=== PATIENT | female | born 1955 | race Caucasian/White ===

== ENCOUNTER → 2017-05-13 | Outpatient (CLI) | payer MEDICARE, OTHER ==
[~2017-05-13] MED LIST: ABAC300; ADVANCED IRON PO; ALBIPROI; ALBIPROI INH; ALBU3IS INH; ALPR.25 PO; ALPR1 PO; AMIT50 PO; AMLO5; AMLO5 PO; ARIP15; ARIP15 PO; ARIP30 PO; Acid Control20 MG PO; Amlodipine Besyl5 MG PO; BANOPHEN50 MG PO; BENTYL20 MG PO; BENZ1; BENZ1 PO; BENZ2 PO; BENZTROPINE; CARB200; CARB200 PO; CARB200ER; CARB200ER PO; CEPH500 PO; CHOL10002 PO; CIPR250 PO; CIPR500 PO; CLIN300 PO; CLON.1 PO; CLON1; CLON1 PO; CLON2; COLE625; COLE625 PO; COMBIVENT RESPIM4 GM IH; COMBIVENT RESPIM4 GM INH; CONEST.625; CONEST.625 PO; CYAN500 PO; CYCL10; CYCL10 PO; DEPAKOTE; DICL25ER PO; DIPATR PO; DIPH25 PO; DIPH50 PO; DIVA500EC; DOCU100 PO; ESTR2 PO; ESTRADIOL 1MG; ESTRADIOL PO; Estradiol1 MG PO; FAMC500; FAMC500 PO; FAMO20 PO; FENO145 PO; FENO160; FENO160 PO; FENO54; FLAX PO; FLONASE ALLERG9.9 ML INH; FLUO10 PO; FLUO20; FLUO20 PO; FLUSAL2505; FLUSAL2505 IH; FLUSAL2505 INH; FLUSAL5005 INH; FLUT.05NI; FLUT110OIA INH; FLUT44OIA IH; FLUT44OIA INH; Flonase 0.05% N16 GM; GABA400; GABA800; GABA800 PO; HYDACE5 PO; HYDACE7.5; HYDR-86 PO; HYDR1TAB94 PO; IBUP800 PO; ISOMON20 PO; LEVSOD100 PO; MAGCIT300 PO; MEDR2.5; MEDR2.5 PO; MEDR5; MEDR5 PO; MORP30ER PO; MULT50L PO; MULTIVITAMINS; MULVITMIND PO; MULVITMINE PO; MUPI1NAS; NAPR500; NAPR500 PO; NITR100 PO; OMEP20ER; OMEP20ER PO; OMEP40CA12 PO; OXYACE5T PO; PIOG15; PIOG15 PO; PRED20 PO; PROACE100 PO; PROC10; PROC10 PO; PROCHLORPERAZINE 10 MG; Prozac20 MG PO; RXCEPH500 PO; RXOXYACE PO; Roxicodone5 MG; TEMA15 PO; TIOT18 INH; TRAM50; TRAM50 PO; TRAZ100; VALS80; VARE1 PO; VITAMIN D3 5000 PO; XANAX 2 MG; XANAX PO
== END | disposition home or self-care (01) ==
LOC: PLD 08:15 → LAB SHORT 08:15
DX: L57.0 Actinic keratosis (principal); L90.5 Scar conditions and fibrosis of skin; L40.8 Other psoriasis
CPT/HCPCS: 88305; 88312

== ENCOUNTER → 2017-05-13 | Outpatient (CLI) | payer MEDICARE, OTHER | LOC: LAB 15:55 | DX: A49.9 Bacterial infection, unspecified (principal) | CPT/HCPCS: 87070; 87077; 87147; 87186; 87205 ==

== ENCOUNTER → 2017-05-14 | Outpatient (CLI) | payer MEDICARE, OTHER ==
[2017-05-14 10:27] LABS: Source, Urine Clean Catch
[2017-05-14 11:39] LABS: Bilirubin, Urine Neg (Neg); Blood, Urine 1+ (Neg); Glucose Qualitative, Urine 2+ (Neg); Ketones, Urine Neg (Neg); Leukocyte Esterase, Urine 1+ (Neg); Nitrite, Urine Neg (Neg); Protein, Urine 2+ (Neg); Specific Gravity, Urine 1.015 (1.003-1.022); Urobilinogen, Urine 1+ (Normal)
[2017-05-14 11:42] LABS: BASOPHILS ABSOLUTE AUTO 0.05 K/mm3 (0.00-0.23); BASOPHILS PERCENT AUTO 1 % (0-2); EOSINOPHILS PERCENT AUTO 2 % (0-6); Hematocrit 37.8 % (33.0-51.0); Hemoglobin 11.8 g/dL (11.5-16.0); IMMATURE GRAN ABSOLUTE AUTO 0.05 K/mm3 (0.00-0.10); IMMATURE GRAN PERCENT AUTO 1 % (0-1); LYMPHOCYTES PERCENT AUTO 22 % (21-46); MONOCYTES PERCENT AUTO 8 % (4-13); Mean Corpuscular HGB 27.3 pg (26.0-34.0); Mean Corpuscular HGB Conc 31.2 g/dL (31.5-36.5); Mean Corpuscular Volume 88 fL (80-100); NEUTROPHILS PERCENT AUTO 67 % (41-73); Platelet Count 420 K/mm3 (150-400); RDW Coefficient Variation 14.7 % (11.7-14.2); Red Blood Cell Count 4.32 M/mm3 (3.80-5.20)
[2017-05-14 11:50] LABS: Anion Gap 7 mmol/L (6-16); Appearance, Urine Hazy (Clear); Blood Urea Nitrogen 9 mg/dL (8-24); Bun/Creatinine Ratio 13.5 (12.0-20.0); CO2, Blood 27 mmol/L (21-32); Calcium, Blood 8.7 mg/dL (8.5-10.1); Chloride, Blood 102 mmol/L (98-108); Color, Urine Yellow (P-Yellow); Creatinine, Blood 0.67 mg/dL (0.40-1.00); Glomerular Filtration Rate >60 (60-); Glucose, Blood 86 mg/dL (70-99); Potassium, Blood 3.8 mmol/L (3.5-5.5); Sodium, Blood 136 mmol/L (136-145)
[2017-05-14 11:53] LABS: Amorphous Light (0-Heavy); Bacteria Mod /hpf; Calcium Oxalate Crystals Few /hpf; Red Blood Cells, Urine 0-2 /hpf (0-2); Squamous Epithelial Cells Few /hpf (Few); White Blood Cells, Urine 0-2 /hpf (0-5)
== END ==
LOC: OLS 10:24
PROVIDERS: Obstetrics & Gynecology Gynecology
DX: Z01.818 Encounter for other preprocedural examination (principal); N95.0 Postmenopausal bleeding
CPT/HCPCS: 36415; 80048; 81001; 85025; 87077; 87086; 87186

== ENCOUNTER 2017-06-10 12:12 | Day surgery (SDC) | payer MEDICARE, OTHER ==
[~2017-06-10] VITALS: Ht 170.2 cm; Wt 134.7 kg
== END 2017-06-10 15:56 | disposition home or self-care (01) ==
LOC: ORSCSDS 12:12
PROVIDERS: Obstetrics & Gynecology Gynecology
PROC: 0UDB7ZX Extraction of Endometrium, Via Natural or Artificial Opening, Diagnostic (ICD-10-PCS; principal; 2017-06-10 14:00)
PROC: 0UJD8ZZ Inspection of Uterus and Cervix, Via Natural or Artificial Opening Endoscopic (ICD-10-PCS; principal; 2017-06-10 14:00)
DX: N95.0 Postmenopausal bleeding (principal); E78.5 Hyperlipidemia, unspecified; J44.9 Chronic obstructive pulmonary disease, unspecified; F41.8 Other specified anxiety disorders; Z87.891 Personal history of nicotine dependence; I10 Essential (primary) hypertension; E03.9 Hypothyroidism, unspecified; Z79.899 Other long term (current) drug therapy
CPT/HCPCS: 88305; J0690; J1100; J1885; J2250; J2270; J2405; J3010; J7120

== ENCOUNTER 2017-09-28 02:20 | Emergency (ER) | payer MEDICARE, OTHER ==
[~2017-09-28] VITALS: Ht 170.2 cm; Wt 124.7 kg
[2017-09-28] MEDS ORDERED: MEDR2.5 PO (02:57)
[2017-09-28] MEDS ORDERED: TIOT18 INH (02:58)
[2017-09-28 03:04] LABS: BASOPHILS ABSOLUTE AUTO 0.06 K/mm3 (0.00-0.23); BASOPHILS PERCENT AUTO 1 % (0-2); EOSINOPHILS ABSOLUTE AUTO 0.37 K/mm3 (0.00-0.68); EOSINOPHILS PERCENT AUTO 3 % (0-6); Hematocrit 37.4 % (33.0-51.0); Hemoglobin 11.8 g/dL (11.5-16.0); IMMATURE GRAN ABSOLUTE AUTO 0.04 K/mm3 (0.00-0.10); IMMATURE GRAN PERCENT AUTO 0 % (0-1); LYMPHOCYTES ABSOLUTE AUTO 2.23 K/mm3 (0.84-5.20); LYMPHOCYTES PERCENT AUTO 17 % (21-46); MONOCYTES ABSOLUTE AUTO 0.96 K/mm3 (0.16-1.47); MONOCYTES PERCENT AUTO 7 % (4-13); Mean Corpuscular HGB 27.6 pg (26.0-34.0); Mean Corpuscular HGB Conc 31.6 g/dL (31.5-36.5); Mean Corpuscular Volume 87 fL (80-100); NEUTROPHILS ABSOLUTE AUTO 9.31 K/mm3 (1.96-9.15); NEUTROPHILS PERCENT AUTO 72 % (41-73); Platelet Count 380 K/mm3 (150-400); RDW Coefficient Variation 15.3 % (11.7-14.2); RDW Standard Deviation 48.9 fL (35.1-46.3); Red Blood Cell Count 4.28 M/mm3 (3.80-5.20); White Blood Cell Count 12.97 K/mm3 (4.00-11.30)
[2017-09-28 03:22] LABS: Alanine Aminotransfer (ALT/SGP 26 U/L (12-78); Albumin, Blood 3.6 g/dL (3.4-5.0); Albumin/Globulin Ratio 0.8 (0.8-1.8); Alk Phos 51 U/L (50-136); Anion Gap 10 mmol/L (6-16); Aspartate Aminotrans (AST/SGOT 34 U/L (12-37); Bilirubin, Total 0.4 mg/dL (0.1-1.0); Blood Urea Nitrogen 9 mg/dL (8-24); Bun/Creatinine Ratio 14.1 (12.0-20.0); CO2, Blood 25 mmol/L (21-32); Calcium, Blood 8.7 mg/dL (8.5-10.1); Chloride, Blood 102 mmol/L (98-108); Creatinine, Blood 0.64 mg/dL (0.40-1.00); Globulin, Blood 4.6 g/dL (2.2-4.0); Glomerular Filtration Rate >60 (60-); Glucose, Blood 122 mg/dL (70-99); Potassium, Blood 4.5 mmol/L (3.5-5.5); Sodium, Blood 137 mmol/L (136-145); Total Protein, Blood 8.2 g/dL (6.4-8.2)
[2017-09-28 04:48] LABS: Source, Urine Clean Catch
[2017-09-28 04:50] LABS: Bilirubin, Urine Neg (Neg); Blood, Urine Neg (Neg); Glucose Qualitative, Urine Neg (Neg); Ketones, Urine Neg (Neg); Leukocyte Esterase, Urine 1+ (Neg); Nitrite, Urine Neg (Neg); Protein, Urine 1+ (Neg); Specific Gravity, Urine 1.025 (1.003-1.022); Urobilinogen, Urine NORM (Normal)
[2017-09-28 04:54] LABS: Appearance, Urine Hazy (Clear); Color, Urine Yellow (P-Yellow)
[2017-09-28 05:05] LABS: Bacteria Many /hpf; Calcium Oxalate Crystals Mod /hpf; Red Blood Cells, Urine Not Seen /hpf (0-2); Squamous Epithelial Cells Many /hpf (Few)
== END 2017-09-28 05:51 | disposition home or self-care (01) ==
LOC: ER 02:20
PROVIDERS: Emergency Medicine
DX: R10.9 Unspecified abdominal pain (principal); K42.9 Umbilical hernia without obstruction or gangrene; G40.909 Epilepsy, unspecified, not intractable, without status epilepticus; F31.9 Bipolar disorder, unspecified; Z88.1 Allergy status to other antibiotic agents; Z88.0 Allergy status to penicillin; Z88.8 Allergy status to other drugs, medicaments and biological substances; Z91.09 Other allergy status, other than to drugs and biological substances; Z88.2 Allergy status to sulfonamides; Z79.899 Other long term (current) drug therapy; Z87.891 Personal history of nicotine dependence
CPT/HCPCS: 36415; 74176; 80053; 81001; 85025; 87086; 96361; 96374; 96375; 96376; 99284; J1885; J3010; J7030

== ENCOUNTER → 2018-07-10 | Outpatient (CLI) | payer MEDICARE, OTHER ==
[2018-07-14 14:07] LABS: HPV 16 Negative (Negative); HPV 18 Negative (Negative); HPV OTHER HR TYPES Negative (Negative)
== END | disposition home or self-care (01) ==
LOC: LAB 14:19 → LAB SHORT 14:19
PROVIDERS: Obstetrics & Gynecology Gynecology
DX: Z91.89 Other specified personal risk factors, not elsewhere classified (principal)
CPT/HCPCS: 87624; G0123

== ENCOUNTER → 2018-07-30 | Outpatient (CLI) | payer MEDICARE, OTHER ==
[2018-07-30 10:38] LABS: BASOPHILS ABSOLUTE AUTO 0.04 K/mm3 (0.00-0.23); BASOPHILS PERCENT AUTO 1 % (0-2); EOSINOPHILS ABSOLUTE AUTO 0.21 K/mm3 (0.00-0.68); EOSINOPHILS PERCENT AUTO 3 % (0-6); Hematocrit 36.8 % (33.0-51.0); Hemoglobin 11.9 g/dL (11.5-16.0); IMMATURE GRAN ABSOLUTE AUTO 0.03 K/mm3 (0.00-0.10); IMMATURE GRAN PERCENT AUTO 0 % (0-1); LYMPHOCYTES PERCENT AUTO 27 % (21-46); MONOCYTES PERCENT AUTO 6 % (4-13); Mean Corpuscular HGB 28.4 pg (26.0-34.0); Mean Corpuscular HGB Conc 32.3 g/dL (31.5-36.5); Mean Corpuscular Volume 88 fL (80-100); Mean Platelet Volume 8.8 fL (9.1-12.4); NEUTROPHILS ABSOLUTE AUTO 4.47 K/mm3 (1.96-9.15); NEUTROPHILS PERCENT AUTO 63 % (41-73); Platelet Count 429 K/mm3 (150-400); RDW Coefficient Variation 14.5 % (11.7-14.2); RDW Standard Deviation 46.8 fL (35.1-46.3); Red Blood Cell Count 4.19 M/mm3 (3.80-5.20); White Blood Cell Count 7.05 K/mm3 (4.00-11.30)
[2018-07-30 10:46] LABS: Alanine Aminotransfer (ALT/SGP 26 U/L (12-78); Albumin, Blood 3.3 g/dL (3.4-5.0); Albumin/Globulin Ratio 0.8 (0.8-1.8); Alk Phos 49 U/L (40-126); Anion Gap 6 mmol/L (6-16); Aspartate Aminotrans (AST/SGOT 22 U/L (12-37); Bilirubin, Total 0.1 mg/dL (0.1-1.0); Blood Urea Nitrogen 10 mg/dL (8-24); Bun/Creatinine Ratio 12.5 (12.0-20.0); CO2, Blood 30 mmol/L (21-32); Calcium, Blood 8.8 mg/dL (8.5-10.1); Chloride, Blood 97 mmol/L (98-108); Globulin, Blood 4.2 g/dL (2.2-4.0); Glomerular Filtration Rate >60 (60-); Glucose, Blood 91 mg/dL (70-99); Potassium, Blood 3.8 mmol/L (3.5-5.5); Sodium, Blood 133 mmol/L (136-145); Total Protein, Blood 7.5 g/dL (6.4-8.2)
== END | disposition home or self-care (01) ==
LOC: LAB SHORT 10:33 → LAB EV 10:33
PROVIDERS: Physician Assistant
DX: R10.9 Unspecified abdominal pain (principal)
CPT/HCPCS: 80053; 85025

== ENCOUNTER 2018-11-24 17:17 | Emergency (ER) | payer MEDICARE, OTHER ==
[~2018-11-24] VITALS: Ht 170.2 cm; Wt 117.9 kg
[~2018-11-24 17:17] MED LIST changes: +Amitriptyline100 MG PO; +BELBUCA300 MCG BC; +BUDE6HFA INH; +Bentyl20 MG PO; -FAMC500; +HYDPAM25 PO; +LISI5 PO; +METO25ER PO; +MULTI VITAMIN1 EACH PO; +OMEPRAZOLE MAGN20 MG PO; +PROM25 PO; +ROPI.25 PO; +SPIRIVA RESPIMAT4 G1 INH; +VENL75ER PO
[2018-11-24 17:51] LABS: BASOPHILS ABSOLUTE AUTO 0.04 K/mm3 (0.00-0.23); BASOPHILS PERCENT AUTO 0 % (0-2); EOSINOPHILS ABSOLUTE AUTO 0.19 K/mm3 (0.00-0.68); EOSINOPHILS PERCENT AUTO 2 % (0-6); Hematocrit 36.2 % (33.0-51.0); Hemoglobin 11.4 g/dL (11.5-16.0); IMMATURE GRAN ABSOLUTE AUTO 0.04 K/mm3 (0.00-0.10); IMMATURE GRAN PERCENT AUTO 0 % (0-1); LYMPHOCYTES ABSOLUTE AUTO 2.86 K/mm3 (0.84-5.20); LYMPHOCYTES PERCENT AUTO 28 % (21-46); MONOCYTES ABSOLUTE AUTO 0.66 K/mm3 (0.16-1.47); MONOCYTES PERCENT AUTO 7 % (4-13); Mean Corpuscular HGB 29.3 pg (26.0-34.0); Mean Corpuscular HGB Conc 31.5 g/dL (31.5-36.5); Mean Corpuscular Volume 93 fL (80-100); Mean Platelet Volume 8.7 fL (9.1-12.4); NEUTROPHILS ABSOLUTE AUTO 6.34 K/mm3 (1.96-9.15); NEUTROPHILS PERCENT AUTO 63 % (41-73); Platelet Count 409 K/mm3 (150-400); RDW Coefficient Variation 13.7 % (11.7-14.2); RDW Standard Deviation 46.5 fL (35.1-46.3); Red Blood Cell Count 3.89 M/mm3 (3.80-5.20); White Blood Cell Count 10.13 K/mm3 (4.00-11.30)
[2018-11-24 18:09] LABS: Alanine Aminotransfer (ALT/SGP 25 U/L (12-78); Albumin, Blood 3.3 g/dL (3.4-5.0); Albumin/Globulin Ratio 0.8 (0.8-1.8); Alk Phos 49 U/L (50-136); Anion Gap 5 mmol/L (6-16); Aspartate Aminotrans (AST/SGOT 16 U/L (12-37); Bilirubin, Total 0.1 mg/dL (0.1-1.0); Blood Urea Nitrogen 12 mg/dL (8-24); Bun/Creatinine Ratio 18.3 (12.0-20.0); CO2, Blood 30 mmol/L (21-32); Calcium, Blood 8.8 mg/dL (8.5-10.1); Chloride, Blood 103 mmol/L (98-108); Creatinine, Blood 0.66 mg/dL (0.40-1.00); Ethanol (Alcohol), Blood, Med <3 mg/dL; Glomerular Filtration Rate >60 (60-); Glucose, Blood 112 mg/dL (70-99); Potassium, Blood 3.7 mmol/L (3.5-5.5); Sodium, Blood 138 mmol/L (136-145); Total Protein, Blood 7.3 g/dL (6.4-8.2)
[2018-11-24 19:05] LABS: Carbamazepine 4.8 ug/mL (4.0-12.0)
[2018-11-24 19:46] LABS: Source, Urine Clean Catch
[2018-11-24 19:50] LABS: Bilirubin, Urine Neg (Neg); Blood, Urine Neg (Neg); Glucose Qualitative, Urine Neg (Neg); Ketones, Urine 1+ (Neg); Leukocyte Esterase, Urine 1+ (Neg); Nitrite, Urine Neg (Neg); Protein, Urine 2+ (Neg); Specific Gravity, Urine 1.025 (1.003-1.022); Urobilinogen, Urine 1+ (Normal)
[2018-11-24 20:02] LABS: Appearance, Urine Hazy (Clear); Color, Urine Yellow (P-Yellow)
[2018-11-24 20:03] LABS: U Amphetamine Screen Not Detected; U Barbituate Screen Not Detected; U Benzodiazapine Screen DETECTED; U Buprenorphine Screen DETECTED; U Cannabinoids Screen DETECTED; U Cocaine Screen Not Detected; U Methadone Screen Not Detected; U Methamphetamine Screen Not Detected; U Opiates Screen Not Detected; U Oxycodone Screen Not Detected; U Phencyclidine Screen Not Detected; U Propoxyphene Screen Not Detected
[2018-11-24 20:11] LABS: Bacteria Many /hpf; Red Blood Cells, Urine Not Seen /hpf (0-2); Squamous Epithelial Cells Many /hpf (Few); White Blood Cells, Urine 0-2 /hpf (0-5)
[2018-11-24 20:16] LABS: Calcium Oxalate Crystals Many /hpf
[2018-11-24] MEDS ORDERED: CEPH500 PO (20:40)
== END 2018-11-24 21:06 | disposition home or self-care (01) ==
LOC: ER 17:17
PROVIDERS: Emergency Medicine
DX: R41.82 Altered mental status, unspecified (principal); N39.0 Urinary tract infection, site not specified; Z88.8 Allergy status to other drugs, medicaments and biological substances; Z88.0 Allergy status to penicillin; Z88.2 Allergy status to sulfonamides; Z88.1 Allergy status to other antibiotic agents; Z79.899 Other long term (current) drug therapy; F31.9 Bipolar disorder, unspecified; Z87.891 Personal history of nicotine dependence
CPT/HCPCS: 36415; 70450; 80053; 80156; 81001; 83735; 85025; 87077; 87086; 87186; 93005; 93010; 96365; 96375; 99285-25; G0480; J2060; J3475; J7030

== ENCOUNTER → 2018-12-27 | Outpatient (CLI) | payer MEDICARE, OTHER | END | disposition home or self-care (01) | LOC: LAB EV 14:03 → LAB SHORT 14:03 | DX: N39.0 Urinary tract infection, site not specified (principal) | CPT/HCPCS: 87077; 87086; 87186 ==

== ENCOUNTER 2019-04-07 16:16 | Observation (INO) | payer MEDICARE, OTHER ==
[~2019-04-07] VITALS: Ht 170.2 cm; Wt 120.2 kg
[~2019-04-07 16:16] MED LIST changes: +Lomotil Tablet1 EACH PO
[2019-04-07 17:16] LABS: White Blood Cell Count 9.97 K/mm3 (4.00-11.30)
[2019-04-07 17:17] LABS: BASOPHILS ABSOLUTE AUTO 0.04 K/mm3 (0.00-0.23); BASOPHILS PERCENT AUTO 0 % (0-2); EOSINOPHILS PERCENT AUTO 1 % (0-6); Hematocrit 36.2 % (33.0-51.0); Hemoglobin 11.1 g/dL (11.5-16.0); IMMATURE GRAN ABSOLUTE AUTO 0.05 K/mm3 (0.00-0.10); IMMATURE GRAN PERCENT AUTO 1 % (0-1); LYMPHOCYTES ABSOLUTE AUTO 2.13 K/mm3 (0.84-5.20); LYMPHOCYTES PERCENT AUTO 21 % (21-46); MONOCYTES ABSOLUTE AUTO 0.75 K/mm3 (0.16-1.47); MONOCYTES PERCENT AUTO 8 % (4-13); Mean Corpuscular HGB 27.1 pg (26.0-34.0); Mean Corpuscular HGB Conc 30.7 g/dL (31.5-36.5); Mean Corpuscular Volume 89 fL (80-100); Mean Platelet Volume 9.1 fL (9.1-12.4); NEUTROPHILS PERCENT AUTO 69 % (41-73); Platelet Count 414 K/mm3 (150-400); RDW Coefficient Variation 14.5 % (11.7-14.2); RDW Standard Deviation 46.2 fL (35.1-46.3); Red Blood Cell Count 4.09 M/mm3 (3.80-5.20)
[2019-04-07 17:41] LABS: Alanine Aminotransfer (ALT/SGP 22 U/L (12-78); Albumin, Blood 3.3 g/dL (3.4-5.0); Albumin/Globulin Ratio 0.8 (0.8-1.8); Alk Phos 55 U/L (50-136); Anion Gap 6 mmol/L (6-16); Aspartate Aminotrans (AST/SGOT 14 U/L (12-37); Bilirubin, Total 0.1 mg/dL (0.1-1.0); Blood Urea Nitrogen 14 mg/dL (8-24); Bun/Creatinine Ratio 15.9 (12.0-20.0); CO2, Blood 26 mmol/L (21-32); Calcium, Blood 8.5 mg/dL (8.5-10.1); Chloride, Blood 106 mmol/L (98-108); Creatinine, Blood 0.88 mg/dL (0.40-1.00); Globulin, Blood 4.1 g/dL (2.2-4.0); Glomerular Filtration Rate >60 (60-); Glucose, Blood 83 mg/dL (70-99); Potassium, Blood 3.7 mmol/L (3.5-5.5); Sodium, Blood 138 mmol/L (136-145); Total Protein, Blood 7.4 g/dL (6.4-8.2)
[2019-04-07 18:13] LABS: Troponin I <0.015 ng/mL (0.000-0.040)
[2019-04-07] MEDS ORDERED: METOPROLOL TART25 MG PO (20:07)
[2019-04-07] MEDS ORDERED: CARB200ER PO (20:07)
[2019-04-07] MEDS ORDERED: BELBUCA450 MCG BC (20:08)
[2019-04-07] MEDS ORDERED: Flonase 0.05% N16 GM (20:10)
[2019-04-07] MEDS ORDERED: Banophen25 MG PO (20:10)
[2019-04-07] MEDS ORDERED: COMBIVENT RESPIM4 GM INH (20:11)
--- NOTE | 2019-04-08 02:22 | NUR ---
Admission Patient admitted with left shoulder pain. VSS. No c/o SOB. IV pain medication was effective. She has scattered bruising to her arms which she states are from "scratching". Skin appears intact otherwise. She has glasses, dentures, and a purse with her.
[2019-04-08 05:13] LABS: BASOPHILS ABSOLUTE AUTO 0.03 K/mm3 (0.00-0.23); BASOPHILS PERCENT AUTO 0 % (0-2); EOSINOPHILS ABSOLUTE AUTO 0.09 K/mm3 (0.00-0.68); EOSINOPHILS PERCENT AUTO 1 % (0-6); Hematocrit 34.7 % (33.0-51.0); Hemoglobin 10.5 g/dL (11.5-16.0); IMMATURE GRAN ABSOLUTE AUTO 0.02 K/mm3 (0.00-0.10); IMMATURE GRAN PERCENT AUTO 0 % (0-1); LYMPHOCYTES ABSOLUTE AUTO 1.92 K/mm3 (0.84-5.20); LYMPHOCYTES PERCENT AUTO 25 % (21-46); MONOCYTES ABSOLUTE AUTO 0.53 K/mm3 (0.16-1.47); MONOCYTES PERCENT AUTO 7 % (4-13); Mean Corpuscular HGB 26.9 pg (26.0-34.0); Mean Corpuscular HGB Conc 30.3 g/dL (31.5-36.5); Mean Corpuscular Volume 89 fL (80-100); Mean Platelet Volume 8.8 fL (9.1-12.4); NEUTROPHILS ABSOLUTE AUTO 5.05 K/mm3 (1.96-9.15); NEUTROPHILS PERCENT AUTO 66 % (41-73); Platelet Count 358 K/mm3 (150-400); RDW Coefficient Variation 14.5 % (11.7-14.2); RDW Standard Deviation 46.5 fL (35.1-46.3); White Blood Cell Count 7.64 K/mm3 (4.00-11.30)
--- NOTE | 2019-04-08 05:14 | NUR ---
Shift Summary Patient slept intermittently overnight. She reported significant pain to her left shoulder which was largely controlled by IV fentanyl and toradol.
[2019-04-08 05:48] LABS: Alanine Aminotransfer (ALT/SGP 22 U/L (12-78); Albumin, Blood 2.9 g/dL (3.4-5.0); Albumin/Globulin Ratio 0.8 (0.8-1.8); Alk Phos 49 U/L (50-136); Anion Gap 4 mmol/L (6-16); Aspartate Aminotrans (AST/SGOT 17 U/L (12-37); Bilirubin, Total 0.3 mg/dL (0.1-1.0); Blood Urea Nitrogen 14 mg/dL (8-24); Bun/Creatinine Ratio 24.2 (12.0-20.0); CO2, Blood 28 mmol/L (21-32); Calcium, Blood 8.3 mg/dL (8.5-10.1); Chloride, Blood 108 mmol/L (98-108); Creatinine, Blood 0.58 mg/dL (0.40-1.00); Globulin, Blood 3.7 g/dL (2.2-4.0); Glomerular Filtration Rate >60 (60-); Glucose, Blood 95 mg/dL (70-99); Potassium, Blood 3.6 mmol/L (3.5-5.5); Sodium, Blood 140 mmol/L (136-145); Total Protein, Blood 6.6 g/dL (6.4-8.2)
[2019-04-08] MEDS ORDERED: NAPR500 PO (15:06)
--- NOTE | 2019-04-08 17:25 | NUR ---
DISCHARGE PT DISCHARGED TO HOME. THIS RN EXPLAINED DISCHARGE INSTRUCTIONS AND MEDICATIONS TO PT AND SHE REPORTS SHE UNDERSTANDS. IV REMOVED WITHOUT DIFFICULTY. PT TRANSFERRED TO PRIVATE VEHICLE VIA WHEELCHAIR BY THIS RN. PT'S BELONGINGS WITH PT.
== END 2019-04-08 16:32 | disposition home or self-care (01) ==
LOC: ER 16:16 → MEDS 16:17
PROVIDERS: Emergency Medicine; Physician Assistant; ADMIT Internal Medicine
DX: M75.32 Calcific tendinitis of left shoulder (principal); J44.9 Chronic obstructive pulmonary disease, unspecified; K21.9 Gastro-esophageal reflux disease without esophagitis; M79.7 Fibromyalgia; F41.0 Panic disorder [episodic paroxysmal anxiety]; F41.9 Anxiety disorder, unspecified; F31.9 Bipolar disorder, unspecified; E78.5 Hyperlipidemia, unspecified; E03.9 Hypothyroidism, unspecified; G40.909 Epilepsy, unspecified, not intractable, without status epilepticus; G89.29 Other chronic pain; Z86.718 Personal history of other venous thrombosis and embolism; Z79.890 Hormone replacement therapy; Z79.899 Other long term (current) drug therapy; Z88.0 Allergy status to penicillin; Z88.1 Allergy status to other antibiotic agents; Z88.2 Allergy status to sulfonamides; Z88.4 Allergy status to anesthetic agent; Z88.8 Allergy status to other drugs, medicaments and biological substances
CPT/HCPCS: 36415; 73200; 80053; 83605; 84484; 85025; 85651; 86140; 87040; 93005; 93010; 94664; 94667; 94760; 96361; 96372; 96374; 96375; 96376; 98960; 99285-25; G0378; J1170; J1650; J1885; J3010; J7030

== ENCOUNTER 2020-02-22 08:12 | Day surgery (SDC) | payer MEDICARE, OTHER ==
[~2020-02-22] VITALS: Ht 170.2 cm; Wt 129.3 kg
[~2020-02-22 08:12] MED LIST changes: +BELBUCA450 MCG BC; +Banophen25 MG PO; +METOPROLOL TART25 MG PO
[2020-02-22] MEDS ORDERED: IBUP800 PO (09:44)
--- NOTE | 2020-02-22 10:16 | NUR ---
02/22/20 1016 Heavenly Munoz INTERSCALENE NERVE BLOCK PERFORMED IN PRE-OP 1000: TIMEOUT CONDUCTED 1002: SITE CHECK 1003: PROCEDURE START 1009: PROCECURE COMPLETE. PT TOLERATED WELL. 3L/MIN O2 VIA NASAL CANNULA, PULSE OX, & BP CUFF ON THROUGHOUT PROCEDURE. NO ISSUES OR COMPLICATION.
--- NOTE | 2020-02-22 16:02 | NUR ---
02/22/20 1601 Lana Yee LATE ENTRY. OXYGEN SATURATIONS 89-91% ON ROOM AIR. OXYGEN VIA NC AT 3L/MIN. OXYGEN SATURATIONS UP TO 94-96%. PT RECEIVED ALBUTEROL TREATMENT IN SDU FOR SHORTNESS OF BREATH PER DR. MENA'S ORDERS. AFTER BREATHING TREATMENT, PT STATES HER BREATHING IS FEELING BETTER. OXYGEN WEANED OFF OF PT. PT'S SATURATIONS REMAINED ABOVE 92% ON ROOM AIR.
== END 2020-02-22 12:50 | disposition home or self-care (01) ==
LOC: ORSCSDS 08:12
PROVIDERS: Orthopaedic Surgery
PROC: 0LQ24ZZ Repair Left Shoulder Tendon, Percutaneous Endoscopic Approach (ICD-10-PCS; principal; 2020-02-22 10:00)
PROC: 0RNK4ZZ Release Left Shoulder Joint, Percutaneous Endoscopic Approach (ICD-10-PCS; principal; 2020-02-22 10:00)
PROC: 0LU24KZ Supplement Left Shoulder Tendon with Nonautologous Tissue Substitute, Percutaneous Endoscopic Approach (ICD-10-PCS; principal; 2020-02-22 10:00)
DX: M75.122 Complete rotator cuff tear or rupture of left shoulder, not specified as traumatic (principal); M75.22 Bicipital tendinitis, left shoulder; M75.42 Impingement syndrome of left shoulder; M19.012 Primary osteoarthritis, left shoulder; M75.32 Calcific tendinitis of left shoulder; I10 Essential (primary) hypertension; J44.9 Chronic obstructive pulmonary disease, unspecified; J45.909 Unspecified asthma, uncomplicated; Z79.899 Other long term (current) drug therapy; E03.9 Hypothyroidism, unspecified; E66.01 Morbid (severe) obesity due to excess calories; Z68.41 Body mass index [BMI] 40.0-44.9, adult; F31.9 Bipolar disorder, unspecified
CPT/HCPCS: 82947; C1713; J0171; J0690; J1100; J2250; J2405; J2704; J3010; J7120

== ENCOUNTER → 2020-07-06 | Outpatient (CLI) | payer MEDICARE, OTHER ==
[~2020-07-06] MED LIST changes: +AMITRIPTYLINE100 M2 PO; +ARIPIPRAZOLE30 MG PO; +BENADRYL25 M1 PO; -BUDE6HFA INH; +CARBAMAZEPINE200 M7 PO; +COLESEVELAM HC625 MG PO; +COMBIVENT RESPIM4 G1 INH; +DECARA1250 MC1 PO; +EFFEXOR XR150 MG PO; +IBU800 M1 PO; +ONDA4ODT SL; +Prinivil10 MG PO; +RESTASIS MULTI1.5 ML BOTHEYES; +ROPINIROLE HC PO; +SYMBICORT 160-4.6 GM INH; +SYNTHROID100 MC7 PO; +VENL25; +Zanaflex2 M1 PO
== END | disposition home or self-care (01) ==
LOC: LAB EV 10:55 → LAB SHORT 10:55
DX: L08.9 Local infection of the skin and subcutaneous tissue, unspecified (principal)
CPT/HCPCS: 87070; 87075; 87205

== ENCOUNTER 2020-08-28 21:13 | Emergency (ER) | payer MEDICARE, OTHER ==
[~2020-08-28] VITALS: Ht 170.2 cm; Wt 136.1 kg
[~2020-08-28 21:13] MED LIST changes: -AMITRIPTYLINE100 M2 PO; -ARIPIPRAZOLE30 MG PO; -BENADRYL25 M1 PO; -CARBAMAZEPINE200 M7 PO; -COLESEVELAM HC625 MG PO; -COMBIVENT RESPIM4 G1 INH; -DECARA1250 MC1 PO; -EFFEXOR XR150 MG PO; -IBU800 M1 PO; -ONDA4ODT SL; -Prinivil10 MG PO; -RESTASIS MULTI1.5 ML BOTHEYES; -ROPINIROLE HC PO; -SYNTHROID100 MC7 PO; -VENL25; -Zanaflex2 M1 PO
[2020-08-28 21:42] LABS: BASOPHILS ABSOLUTE AUTO 0.05 K/mm3 (0.00-0.23); BASOPHILS PERCENT AUTO 1 % (0-2); EOSINOPHILS ABSOLUTE AUTO 0.33 K/mm3 (0.00-0.68); EOSINOPHILS PERCENT AUTO 4 % (0-6); Hematocrit 38.2 % (33.0-51.0); Hemoglobin 12.3 g/dL (11.5-16.0); IMMATURE GRAN ABSOLUTE AUTO 0.03 K/mm3 (0.00-0.10); IMMATURE GRAN PERCENT AUTO 0 % (0-1); LYMPHOCYTES ABSOLUTE AUTO 2.43 K/mm3 (0.84-5.20); LYMPHOCYTES PERCENT AUTO 30 % (21-46); MONOCYTES PERCENT AUTO 7 % (4-13); Mean Corpuscular HGB 29.5 pg (26.0-34.0); Mean Corpuscular HGB Conc 32.2 g/dL (31.5-36.5); Mean Corpuscular Volume 92 fL (80-100); Mean Platelet Volume 9.2 fL (9.1-12.4); NEUTROPHILS ABSOLUTE AUTO 4.62 K/mm3 (1.96-9.15); NEUTROPHILS PERCENT AUTO 57 % (41-73); Platelet Count 346 K/mm3 (150-400); RDW Coefficient Variation 12.7 % (11.7-14.2); RDW Standard Deviation 43.2 fL (35.1-46.3); Red Blood Cell Count 4.17 M/mm3 (3.80-5.20); White Blood Cell Count 8.06 K/mm3 (4.00-11.30)
[2020-08-28 22:00] LABS: Alanine Aminotransfer (ALT/SGP 24 U/L (12-78); Albumin, Blood 3.5 g/dL (3.4-5.0); Alk Phos 49 U/L (50-136); Anion Gap 7 mmol/L (6-16); Aspartate Aminotrans (AST/SGOT 14 U/L (12-37); Bilirubin, Total 0.2 mg/dL (0.1-1.0); Blood Urea Nitrogen 8 mg/dL (8-24); Bun/Creatinine Ratio 9.4 (12.0-20.0); CO2, Blood 28 mmol/L (21-32); Calcium, Blood 8.6 mg/dL (8.5-10.1); Chloride, Blood 104 mmol/L (98-108); Creatinine, Blood 0.85 mg/dL (0.40-1.00); Ethanol (Alcohol), Blood, Med <3 mg/dL; Globulin, Blood 3.6 g/dL (2.2-4.0); Glomerular Filtration Rate >60 (60-); Glucose, Blood 123 mg/dL (70-99); Potassium, Blood 3.6 mmol/L (3.5-5.5); Sodium, Blood 139 mmol/L (136-145); Total Protein, Blood 7.1 g/dL (6.4-8.2)
[2020-08-28 22:51] LABS: Source, Urine Clean Catch
[2020-08-28 22:58] LABS: Bilirubin, Urine Neg (Neg); Blood, Urine 1+ (Neg); Glucose Qualitative, Urine Neg (Neg); Ketones, Urine Neg (Neg); Leukocyte Esterase, Urine Neg (Neg); Nitrite, Urine Neg (Neg); Protein, Urine 2+ (Neg); Specific Gravity, Urine 1.005 (1.003-1.022); Urobilinogen, Urine NORM (Normal); pH, Urine 6.5 (5.0-8.0)
[2020-08-28 23:04] LABS: Appearance, Urine Hazy (Clear); Color, Urine Yellow (P-Yellow)
[2020-08-28 23:05] LABS: Bacteria Mod /hpf; Red Blood Cells, Urine Rare /hpf (0-2); Squamous Epithelial Cells Many /hpf (Few); White Blood Cells, Urine 0-2 /hpf (0-5)
[2020-08-28 23:12] LABS: U Amphetamine Screen Not Detected; U Barbituate Screen Not Detected; U Benzodiazapine Screen Not Detected; U Buprenorphine Screen Not Detected; U Cannabinoids Screen Not Detected; U Cocaine Screen Not Detected; U Methadone Screen Not Detected; U Methamphetamine Screen Not Detected; U Opiates Screen Not Detected; U Oxycodone Screen Not Detected; U Phencyclidine Screen Not Detected; U Propoxyphene Screen Not Detected
[2020-11-07] MEDS ORDERED: VENL25 (10:26)
[2020-11-07] MEDS ORDERED: OMEP20ER (10:29)
[2020-11-07] MEDS ORDERED: SYNTHROID100 MC7 PO (14:21)
[2020-11-07] MEDS ORDERED: BENADRYL25 M1 PO (14:23)
[2020-11-07] MEDS ORDERED: CARBAMAZEPINE200 M7 PO (14:24)
[2020-11-07] MEDS ORDERED: COLESEVELAM HC625 MG PO (14:24)
[2020-11-07] MEDS ORDERED: ROPINIROLE HC PO (14:25)
[2020-11-07] MEDS ORDERED: RESTASIS MULTI1.5 ML BOTHEYES (14:25)
[2020-11-07] MEDS ORDERED: CLON.1 PO (14:25)
[2020-11-07] MEDS ORDERED: METOPROLOL TART25 MG PO (14:25)
[2020-11-07] MEDS ORDERED: AMITRIPTYLINE100 M2 PO (14:26)
[2020-11-07] MEDS ORDERED: EFFEXOR XR150 MG PO (14:26)
[2020-11-07] MEDS ORDERED: ARIPIPRAZOLE30 MG PO (14:26)
[2020-11-07] MEDS ORDERED: Prinivil10 MG PO (14:27)
[2020-11-07] MEDS ORDERED: MEDR2.5 PO (14:27)
[2020-11-07] MEDS ORDERED: BENZ1 PO (14:27)
[2020-11-07] MEDS ORDERED: IBU800 M1 PO (14:30)
[2020-11-08] MEDS ORDERED: DECARA1250 MC1 PO (11:51)
[2020-11-08] MEDS ORDERED: COMBIVENT RESPIM4 G1 INH (11:56)
[2020-11-08] MEDS ORDERED: OMEP20ER PO (11:59)
[2020-11-08] MEDS ORDERED: DIPATR PO (12:02)
[2020-11-08] MEDS ORDERED: Zanaflex2 M1 PO (12:03)
[2020-11-09] MEDS ORDERED: ONDA4ODT SL (12:18)
== END 2020-08-28 23:14 | disposition home or self-care (01) ==
LOC: ER 21:13
PROVIDERS: Emergency Medicine
DX: Z00.00 Encounter for general adult medical examination without abnormal findings (principal); Z79.899 Other long term (current) drug therapy; Z88.0 Allergy status to penicillin; Z91.041 Radiographic dye allergy status; Z88.2 Allergy status to sulfonamides; Z88.1 Allergy status to other antibiotic agents; Z87.891 Personal history of nicotine dependence
CPT/HCPCS: 36415; 80053; 81001; 85025; 93005; 93010; 99284-25; G0480

== ENCOUNTER → 2020-10-26 | Outpatient (CLI) | payer MEDICARE, OTHER ==
[~2020-10-26] MED LIST changes: +AMITRIPTYLINE100 M2 PO; +ARIPIPRAZOLE30 MG PO; +BENADRYL25 M1 PO; +CARBAMAZEPINE200 M7 PO; +COLESEVELAM HC625 MG PO; +COMBIVENT RESPIM4 G1 INH; +DECARA1250 MC1 PO; +EFFEXOR XR150 MG PO; +IBU800 M1 PO; +ONDA4ODT SL; +Prinivil10 MG PO; +RESTASIS MULTI1.5 ML BOTHEYES; +ROPINIROLE HC PO; +SYNTHROID100 MC7 PO; +VENL25; +Zanaflex2 M1 PO
[2020-10-26 16:52] LABS: Anion Gap 6 mmol/L (6-16); Blood Urea Nitrogen 11 mg/dL (8-24); Bun/Creatinine Ratio 16.1 (12.0-20.0); CO2, Blood 27 mmol/L (21-32); Calcium, Blood 8.6 mg/dL (8.5-10.1); Chloride, Blood 102 mmol/L (98-108); Creatinine, Blood 0.68 mg/dL (0.40-1.00); Glomerular Filtration Rate >60 (60-); Glucose, Blood 85 mg/dL (70-99); Potassium, Blood 4.4 mmol/L (3.5-5.5); Sodium, Blood 135 mmol/L (136-145); Thyroid Stimulating Hormone 0.819 uIU/mL (0.360-4.800)
== END | disposition home or self-care (01) ==
LOC: LAB 14:55 → LAB SHORT 14:55
PROVIDERS: Nurse Practitioner
DX: E03.9 Hypothyroidism, unspecified (principal); I10 Essential (primary) hypertension
CPT/HCPCS: 80048; 84443

== ENCOUNTER 2020-11-07 09:14 | Inpatient (IN) | payer MEDICARE, OTHER | END 2020-11-09 13:38 | disposition home or self-care (01) | DRG 439 | LOC: ER 09:14 → ERHOLD 14:27 → MEDS 17:53 | PROVIDERS: ADMIT Internal Medicine | DX: K85.20 Alcohol induced acute pancreatitis without necrosis or infection (principal); R65.10 Systemic inflammatory response syndrome (SIRS) of non-infectious origin without acute organ dysfunction; Z68.42 Body mass index [BMI] 45.0-49.9, adult; E66.01 Morbid (severe) obesity due to excess calories; K58.9 Irritable bowel syndrome, unspecified; J44.9 Chronic obstructive pulmonary disease, unspecified; F31.9 Bipolar disorder, unspecified; M79.7 Fibromyalgia; M54.5 Low back pain; K21.9 Gastro-esophageal reflux disease without esophagitis; G89.29 Other chronic pain; G40.909 Epilepsy, unspecified, not intractable, without status epilepticus; Z87.19 Personal history of other diseases of the digestive system; Z98.84 Bariatric surgery status; Z90.49 Acquired absence of other specified parts of digestive tract; Z98.1 Arthrodesis status; Z88.0 Allergy status to penicillin; Z88.1 Allergy status to other antibiotic agents; Z88.2 Allergy status to sulfonamides; Z87.891 Personal history of nicotine dependence ==

== ENCOUNTER → 2021-11-12 | Outpatient (CLI) | payer MEDICARE, OTHER ==
[~2021-11-12] MED LIST changes: +ADVAIR HFA 230-28 GM INH; +BENZ100A PO; +CATAPRES0.1 MG PO; +DECADRON6 M1 PO; +MOBIC15 MG PO; +Q-Tussin100 MG/5 M PO; +Voltaren100 GM TOP
[2021-11-12 11:59] LABS: BASOPHILS ABSOLUTE AUTO 0.03 K/mm3 (0.00-0.23); BASOPHILS PERCENT AUTO 0 % (0-2); EOSINOPHILS ABSOLUTE AUTO 0.31 K/mm3 (0.00-0.68); EOSINOPHILS PERCENT AUTO 2 % (0-6); Hematocrit 37.9 % (33.0-51.0); Hemoglobin 12.6 g/dL (11.5-16.0); IMMATURE GRAN ABSOLUTE AUTO 0.06 K/mm3 (0.00-0.10); IMMATURE GRAN PERCENT AUTO 0 % (0-1); LYMPHOCYTES PERCENT AUTO 16 % (21-46); MONOCYTES ABSOLUTE AUTO 1.26 K/mm3 (0.16-1.47); MONOCYTES PERCENT AUTO 8 % (4-13); Mean Corpuscular HGB 30.8 pg (26.0-34.0); Mean Corpuscular HGB Conc 33.2 g/dL (31.5-36.5); Mean Corpuscular Volume 93 fL (80-100); Mean Platelet Volume 8.6 fL (9.1-12.4); NEUTROPHILS ABSOLUTE AUTO 10.92 K/mm3 (1.96-9.15); NEUTROPHILS PERCENT AUTO 73 % (41-73); Platelet Count 377 K/mm3 (150-400); RDW Coefficient Variation 12.9 % (11.7-14.2); RDW Standard Deviation 43.7 fL (35.1-46.3); Red Blood Cell Count 4.09 M/mm3 (3.80-5.20); White Blood Cell Count 14.98 K/mm3 (4.00-11.30)
[2021-11-12 12:07] LABS: Albumin, Blood 2.8 g/dL (3.4-5.0); Albumin/Globulin Ratio 0.8 (0.8-1.8); Bilirubin, Total 0.5 mg/dL (0.1-1.0); Bun/Creatinine Ratio 19.2 (12.0-20.0); Calcium, Blood 9.2 mg/dL (8.5-10.1); Creatinine, Blood 0.78 mg/dL (0.40-1.00); Globulin, Blood 3.7 g/dL (2.2-4.0); Potassium, Blood 3.6 mmol/L (3.5-5.5); Total Protein, Blood 6.5 g/dL (6.4-8.2)
== END | disposition home or self-care (01) ==
LOC: LAB 11:53 → LAB SHORT 11:53
PROVIDERS: Physician Assistant Medical
DX: R10.32 Left lower quadrant pain (principal)
CPT/HCPCS: 80053; 83690; 85025

== ENCOUNTER → 2021-11-13 | Outpatient (CLI) | payer MEDICARE, OTHER ==
[2021-11-13 10:22] LABS: BASOPHILS ABSOLUTE AUTO 0.03 K/mm3 (0.00-0.23); BASOPHILS PERCENT AUTO 0 % (0-2); EOSINOPHILS ABSOLUTE AUTO 0.36 K/mm3 (0.00-0.68); EOSINOPHILS PERCENT AUTO 4 % (0-6); Hematocrit 33.9 % (33.0-51.0); Hemoglobin 11.2 g/dL (11.5-16.0); IMMATURE GRAN ABSOLUTE AUTO 0.06 K/mm3 (0.00-0.10); IMMATURE GRAN PERCENT AUTO 1 % (0-1); LYMPHOCYTES PERCENT AUTO 21 % (21-46); MONOCYTES ABSOLUTE AUTO 0.79 K/mm3 (0.16-1.47); MONOCYTES PERCENT AUTO 8 % (4-13); Mean Corpuscular HGB 30.9 pg (26.0-34.0); Mean Corpuscular Volume 94 fL (80-100); Mean Platelet Volume 8.5 fL (9.1-12.4); NEUTROPHILS ABSOLUTE AUTO 6.87 K/mm3 (1.96-9.15); NEUTROPHILS PERCENT AUTO 67 % (41-73); Platelet Count 284 K/mm3 (150-400); RDW Coefficient Variation 12.8 % (11.7-14.2); RDW Standard Deviation 43.8 fL (35.1-46.3); Red Blood Cell Count 3.62 M/mm3 (3.80-5.20); White Blood Cell Count 10.31 K/mm3 (4.00-11.30)
== END | disposition home or self-care (01) ==
LOC: LAB SHORT 10:19 → LAB 10:19
PROVIDERS: Physician Assistant Medical
DX: R10.13 Epigastric pain (principal)
CPT/HCPCS: 83690; 85025

== ENCOUNTER 2022-03-23 22:27 | Emergency (ER) | payer MEDICARE, OTHER ==
[~2022-03-23] VITALS: Ht 170.2 cm; Wt 113.4 kg
== END 2022-03-24 02:46 | disposition home or self-care (01) ==
LOC: ER 22:27
DX: M79.672 Pain in left foot (principal); J44.9 Chronic obstructive pulmonary disease, unspecified; K21.9 Gastro-esophageal reflux disease without esophagitis; Z79.899 Other long term (current) drug therapy; Z79.890 Hormone replacement therapy; Z88.0 Allergy status to penicillin; Z88.2 Allergy status to sulfonamides; Z88.8 Allergy status to other drugs, medicaments and biological substances
CPT/HCPCS: 93971

== ENCOUNTER 2022-06-06 07:32 | Day surgery (SDC) | payer OTHER ==
[~2022-06-06] VITALS: Ht 170.2 cm; Wt 114.4 kg
[2022-06-06] MEDS ORDERED: CARB200 PO (07:53)
[2022-06-06] MEDS ORDERED: METO25ER PO (07:58)
--- NOTE | 2022-06-06 08:00 | NUR ---
06/06/22 0800 Marie Esposito CALL LIGHT WITHIN REACH. TETRACAINE IN RIGHT EYE IN AT 0751 AND PLEDGETT IN AT 0752
== END 2022-06-06 09:05 | disposition home or self-care (01) ==
LOC: ORSCSDS 07:32
PROVIDERS: Ophthalmology
PROC: 08DJ3ZZ Extraction of Right Lens, Percutaneous Approach (ICD-10-PCS; principal; 2022-06-06 08:30)
DX: H25.11 Age-related nuclear cataract, right eye (principal); Z96.1 Presence of intraocular lens; F41.9 Anxiety disorder, unspecified; F32.A Depression, unspecified; I10 Essential (primary) hypertension; E78.5 Hyperlipidemia, unspecified; J44.9 Chronic obstructive pulmonary disease, unspecified; F31.9 Bipolar disorder, unspecified; Z87.891 Personal history of nicotine dependence; Z79.899 Other long term (current) drug therapy
CPT/HCPCS: J2001; J2250; J3301; J7040; V2632

== ENCOUNTER → 2022-07-10 | Outpatient (CLI) | payer OTHER ==
[2022-07-10 15:09] LABS: BASOPHILS ABSOLUTE AUTO 0.03 K/mm3 (0.00-0.23); BASOPHILS PERCENT AUTO 1 % (0-2); EOSINOPHILS ABSOLUTE AUTO 0.23 K/mm3 (0.00-0.68); EOSINOPHILS PERCENT AUTO 4 % (0-6); Hematocrit 38.8 % (33.0-51.0); Hemoglobin 12.7 g/dL (11.5-16.0); IMMATURE GRAN ABSOLUTE AUTO 0.02 K/mm3 (0.00-0.10); IMMATURE GRAN PERCENT AUTO 0 % (0-1); LYMPHOCYTES PERCENT AUTO 28 % (21-46); MONOCYTES ABSOLUTE AUTO 0.42 K/mm3 (0.16-1.47); MONOCYTES PERCENT AUTO 7 % (4-13); Mean Corpuscular HGB 30.7 pg (26.0-34.0); Mean Corpuscular HGB Conc 32.7 g/dL (31.5-36.5); Mean Corpuscular Volume 94 fL (80-100); Mean Platelet Volume 9.1 fL (9.1-12.4); NEUTROPHILS PERCENT AUTO 62 % (41-73); Platelet Count 313 K/mm3 (150-400); RDW Coefficient Variation 12.3 % (11.7-14.2); RDW Standard Deviation 42.3 fL (35.1-46.3); Red Blood Cell Count 4.14 M/mm3 (3.80-5.20)
[2022-07-10 15:18] LABS: Albumin, Blood 3.1 g/dL (3.4-5.0); Albumin/Globulin Ratio 0.9 (0.8-1.8); Bilirubin, Total 0.3 mg/dL (0.1-1.0); Bun/Creatinine Ratio 13.9 (12.0-20.0); Calcium, Blood 8.8 mg/dL (8.5-10.1); Creatinine, Blood 0.72 mg/dL (0.40-1.00); Globulin, Blood 3.5 g/dL (2.2-4.0); Potassium, Blood 3.9 mmol/L (3.5-5.5); Total Protein, Blood 6.6 g/dL (6.4-8.2)
== END | disposition home or self-care (01) ==
LOC: LAB SHORT 15:02 → LAB 15:02
PROVIDERS: Physician Assistant
DX: R07.89 Other chest pain (principal)
CPT/HCPCS: 80053; 84484; 85025

== ENCOUNTER → 2022-07-12 | Outpatient (CLI) | payer OTHER ==
[2022-07-12 17:45] LABS: Percent Saturation 23.8 % (15.0-50.0)
[2022-07-12 17:51] LABS: CHOL/HDL RATIO 2.4; Cholesterol 106 mg/dL (50-200); HDL Cholesterol 44 mg/dL (>39); LDL/HDL RATIO 0.9; Low Density Lipoprotein Chol 40 mg/dL (0-110); Triglycerides 111 mg/dL (30-160); Very Low Density Lipoprot Chol 22 mg/dL (6-32)
== END | disposition home or self-care (01) ==
LOC: LAB SHORT 14:29
PROVIDERS: Family Medicine
DX: E55.9 Vitamin D deficiency, unspecified (principal); E53.8 Deficiency of other specified B group vitamins; K91.2 Postsurgical malabsorption, not elsewhere classified; D50.9 Iron deficiency anemia, unspecified; R11.2 Nausea with vomiting, unspecified; Z98.84 Bariatric surgery status
CPT/HCPCS: 80061; 82306; 82607; 82746; 83540; 83550; 83690

== ENCOUNTER 2022-08-25 11:47 | Observation (INO) | payer OTHER ==
[~2022-08-25] VITALS: Ht 170.2 cm; Wt 98.4 kg
[~2022-08-25 11:47] MED LIST changes: -ADVAIR HFA 230-28 GM INH; +AMITRIPTYLINE150 M1 PO; -Amitriptyline100 MG PO; -EFFEXOR XR150 MG PO; +FLUTICASONE-SAL12 G1 INH; +LISI20 PO; -Prinivil10 MG PO; -ROPINIROLE HC PO; -SYNTHROID100 MC7 PO
[2022-08-25 14:17] LABS: BASOPHILS ABSOLUTE AUTO 0.03 K/mm3 (0.00-0.23); BASOPHILS PERCENT AUTO 0 % (0-2); EOSINOPHILS ABSOLUTE AUTO 0.07 K/mm3 (0.00-0.68); EOSINOPHILS PERCENT AUTO 1 % (0-6); Hematocrit 38.7 % (33.0-51.0); Hemoglobin 12.8 g/dL (11.5-16.0); IMMATURE GRAN ABSOLUTE AUTO 0.04 K/mm3 (0.00-0.10); IMMATURE GRAN PERCENT AUTO 1 % (0-1); LYMPHOCYTES ABSOLUTE AUTO 1.42 K/mm3 (0.84-5.20); LYMPHOCYTES PERCENT AUTO 16 % (21-46); MONOCYTES ABSOLUTE AUTO 0.64 K/mm3 (0.16-1.47); MONOCYTES PERCENT AUTO 7 % (4-13); Mean Corpuscular HGB 30.6 pg (26.0-34.0); Mean Corpuscular HGB Conc 33.1 g/dL (31.5-36.5); Mean Corpuscular Volume 93 fL (80-100); NEUTROPHILS PERCENT AUTO 75 % (41-73); Platelet Count 387 K/mm3 (150-400); RDW Coefficient Variation 12.7 % (11.7-14.2); RDW Standard Deviation 43.3 fL (35.1-46.3); Red Blood Cell Count 4.18 M/mm3 (3.80-5.20)
[2022-08-25 14:25] LABS: Albumin, Blood 2.8 g/dL (3.4-5.0); Albumin/Globulin Ratio 0.8 (0.8-1.8); Bilirubin, Total 0.3 mg/dL (0.1-1.0); Bun/Creatinine Ratio 25.8 (12.0-20.0); Calcium, Blood 8.8 mg/dL (8.5-10.1); Creatinine, Blood 0.58 mg/dL (0.40-1.00); Globulin, Blood 3.5 g/dL (2.2-4.0); Potassium, Blood 4.1 mmol/L (3.5-5.5); Total Protein, Blood 6.3 g/dL (6.4-8.2)
[2022-08-25 16:33] LABS: Source, Urine Clean Catch
[2022-08-25 16:37] LABS: Appearance, Urine Cloudy (Clear); Bilirubin, Urine Neg (Neg); Blood, Urine 4+ (Neg); Color, Urine Yellow (P-Yellow); Glucose Qualitative, Urine Neg (Neg); Ketones, Urine Neg (Neg); Leukocyte Esterase, Urine Neg (Neg); Nitrite, Urine Neg (Neg); Protein, Urine Neg (Neg); Specific Gravity, Urine 1.015 (1.003-1.022); Urobilinogen, Urine NORM (Normal)
[2022-08-25 16:46] LABS: Amorphous Mod (0-Heavy); White Blood Cells, Urine 0-2 /hpf (0-5)
[2022-08-25 16:47] LABS: Squamous Epithelial Cells Mod /hpf (Few)
[2022-08-25 16:50] LABS: Bacteria Mod /hpf
[2022-08-25 17:14] VITALS: BP 124/85
--- NOTE | 2022-08-25 18:59 | NUR ---
ADMIT NOTE MS PIERRE WAS ADMITTED TO THE MEDICAL UNIT FROM ER AT 1705HRS. SHE WAS ABLE TO TRANSFER STRETCHER TO BED. SHE WALKED INTO THE BATHROOM WITH GAITBELT, WALKER, 1 PERSON ASSIST. SHE SAID SHE FELT INDEPENDENT, BUT ADMITTED TO 3 FALLS IN THE PAST 3 MONTHS AND THAT SHE SOMETIMES USES A WALKER AT HOME. SHE SAID SHE FEELS GENERAL OVERALL WEAKNESS DUE TO BEING UNABLE TO EAT FOR A WEEK/N/V. SHE SAID SHE HAS HAD MORE THAN 20LB WT LOSS IN LAST 3 MONTHS. C/O 4-5/10 LOWER ABDOMINAL PAIN. NAUSEA ALMOST GONE AFTER MEDS IN ER. IVF INFUSING. SIPPING ICED WATER. SHE LIVES AT [facility]. I CALLED TO QUESTION SOME MEDS ON HER MED LIST BUT NO ANSWER. SMALL WOUND R EAR PHOTOGRAPHED IN CHART. BED LOW, CALL LIGHT IN REACH. BED ALARM ON.
[2022-08-25 19:19] VITALS: BP 140/82
--- NOTE | 2022-08-25 23:36 | NUR ---
2005 PT LYING IN BED, REPORTS L SIDE PAIN OF 8/10, WILL MEDICATE ORDERED AND EVAL FOR EFFECT. PT DENIES NEED FOR ANYTHING ELSE AT THIS TIME. NO OTHER APPARENT SIGNS OF DISTRESS. CALL LIGHT IS IN REACH.
--- NOTE | 2022-08-25 23:37 | NUR ---
2240 PT LYING IN BED, EYES CLOSED, APPEARS TO BE RESTING. BREATHING IS EVEN, UNLABORED. NO APPARENT SIGNS OF DISTRESS. CALL LIGHT IS IN REACH.
--- NOTE | 2022-08-26 00:13 | NUR ---
PT LYING IN BED, EYES CLOSED, APPEARS TO BE RESTING. BREATHING IS EVEN, UNLABORED. NO APPARENT SIGNS OF DISTRESS. CALL LIGHT IS IN REACH.
[2022-08-26] MEDS ORDERED: HYDPAM25 PO (01:59)
[2022-08-26] MEDS ORDERED: VITAMIN D5000 UNIT PO (02:03)
[2022-08-26] MEDS ORDERED: BENADRYL25 MG PO (02:05)
[2022-08-26] MEDS ORDERED: Acetaminophen650 M1 PO (02:06)
[2022-08-26] MEDS ORDERED: BISA10S PR (02:07)
[2022-08-26] MEDS ORDERED: BUPRENORPHINE HC8 MG SL (02:08)
[2022-08-26] MEDS ORDERED: GABA300 PO (02:11)
[2022-08-26] MEDS ORDERED: ALUMINUM HYDROXIDE PO (02:15)
[2022-08-26] MEDS ORDERED: MAGNESIUM HYDROXIDE PO (02:15)
[2022-08-26] MEDS ORDERED: HYDROCORTISONE30 GM TOP (02:17)
[2022-08-26] MEDS ORDERED: LOPERAMIDE1 MG/7.10 PO (02:20)
[2022-08-26] MEDS ORDERED: ONDA4 PO (02:21)
[2022-08-26] MEDS ORDERED: DULCOLAX400 MG/5 M PO (02:21)
[2022-08-26] MEDS ORDERED: PROM25 PO (02:23)
[2022-08-26] MEDS ORDERED: BENZ100A PO (02:25)
[2022-08-26] MEDS ORDERED: ALORA1 EA11 TD (02:27)
[2022-08-26] MEDS ORDERED: CYCL0.05OP BOTHEYES (02:28)
[2022-08-26] MEDS ORDERED: SPIRIVA RESPIMAT4 G3 INH (02:29)
[2022-08-26] MEDS ORDERED: [UNRECOGNIZED DRUG - CODE] TOP (02:32)
[2022-08-26] MEDS ORDERED: SYMBICORT 16010.2 GM INH (02:33)
[2022-08-26] MEDS ORDERED: BARRIER CREAM TOP (02:36)
[2022-08-26] MEDS ORDERED: IPRAT-ALBUT 0.5-3 ML INH (02:37)
[2022-08-26] MEDS ORDERED: GLYDO11 ML TOP (02:38)
[2022-08-26] MEDS ORDERED: TRIDERM28.4 GM TOP (02:39)
[2022-08-26] MEDS ORDERED: Ventolin/Prove6.7 GM INH (02:40)
[2022-08-26 02:45] VITALS: BP 128/81
--- NOTE | 2022-08-26 03:53 | NUR ---
0200 PT LYING IN BED, EYES CLOSED, APPEARS TO BE RESTING. BREATHING IS EVEN UNLABORED. NO APPARENT SIGNS OF DISTRESS. CALL LIGHT IS IN REACH.
--- NOTE | 2022-08-26 03:54 | NUR ---
PT LYING IN BED, EYES CLOSED. WAKES EASILY TO VERBAL STIMULI. NO APPARENT SIGNS OF DISTRESS. CALL LIGHT IS IN REACH.
[2022-08-26 05:29] LABS: BASOPHILS ABSOLUTE AUTO 0.03 K/mm3 (0.00-0.23); BASOPHILS PERCENT AUTO 0 % (0-2); EOSINOPHILS ABSOLUTE AUTO 0.16 K/mm3 (0.00-0.68); EOSINOPHILS PERCENT AUTO 2 % (0-6); Hematocrit 34.5 % (33.0-51.0); Hemoglobin 11.3 g/dL (11.5-16.0); IMMATURE GRAN ABSOLUTE AUTO 0.02 K/mm3 (0.00-0.10); IMMATURE GRAN PERCENT AUTO 0 % (0-1); LYMPHOCYTES ABSOLUTE AUTO 1.69 K/mm3 (0.84-5.20); LYMPHOCYTES PERCENT AUTO 25 % (21-46); MONOCYTES ABSOLUTE AUTO 0.58 K/mm3 (0.16-1.47); MONOCYTES PERCENT AUTO 9 % (4-13); Mean Corpuscular HGB 30.3 pg (26.0-34.0); Mean Corpuscular HGB Conc 32.8 g/dL (31.5-36.5); Mean Corpuscular Volume 93 fL (80-100); Mean Platelet Volume 8.9 fL (9.1-12.4); NEUTROPHILS ABSOLUTE AUTO 4.24 K/mm3 (1.96-9.15); NEUTROPHILS PERCENT AUTO 63 % (41-73); Platelet Count 314 K/mm3 (150-400); RDW Coefficient Variation 12.9 % (11.7-14.2); RDW Standard Deviation 43.9 fL (35.1-46.3); Red Blood Cell Count 3.73 M/mm3 (3.80-5.20); White Blood Cell Count 6.72 K/mm3 (4.00-11.30)
[2022-08-26 05:43] LABS: International Normalized Ratio 1.4; Prothrombin Time Results 14.4 Sec (9.7-11.5)
[2022-08-26 05:56] LABS: Albumin, Blood 2.3 g/dL (3.4-5.0); Albumin/Globulin Ratio 0.8 (0.8-1.8); Bilirubin, Total 0.3 mg/dL (0.1-1.0); Bun/Creatinine Ratio 25.5 (12.0-20.0); Calcium, Blood 8.3 mg/dL (8.5-10.1); Creatinine, Blood 0.51 mg/dL (0.40-1.00); Magnesium, Blood 1.9 mg/dL (1.6-2.4); Potassium, Blood 3.9 mmol/L (3.5-5.5); Total Protein, Blood 5.3 g/dL (6.4-8.2)
--- NOTE | 2022-08-26 06:10 | NUR ---
PT IS AAO X 4, ON RA. REPORTS L SIDE PAIN. GOT TIZANADINE AND TYLENOL X 2. WILL HAVE DAY RN FOLLOW UP ON GETTING THE REST OF HER HOME MEDS ORDERED WITH THE DAY HOSPITALIST. PT ALSO REPORTED HEARTBURN, WAS GIVEN IAN MIST.
--- NOTE | 2022-08-26 06:12 | NUR ---
PT LYING IN BED, EYES CLOSED, APPEARS TO BE RESTING. BREATHING IS EVEN, UNLABORED. NO APPARENT SIGNS OF DISTRESS. CALL LIGHT IS IN REACH. NO OTHER CHANGES THIS SHIFT.
[2022-08-26 07:24] VITALS: BP 120/75
[2022-08-26] MEDS ORDERED: AMLO5 PO (12:34)
[2022-08-26] MEDS ORDERED: ABILIFY MYCITE30 M2 PO (12:34)
--- NOTE | 2022-08-26 13:58 | NUR ---
DISCHARGE SUMMARY PATIENT WITH LEFT SIDE PAIN, TREATED PER EMAR. DENIES ANY OTHER ISSUES. DISCHARGE EDUCATION PACKET REVIEWED AND SENT WITH PATIENT, SIGNATURE OBTAINED. PATIENT LEFT FLOOR AT 1331 ON 08/26/22 IN WHEELCHAIR WITH [facility] TRANSPORT.
--- NOTE | 2022-08-26 14:26 | NUR ---
THIS FRACTIONATING STILL OPERATOR HAS REVIEWED AND AGREES WITH ALL NOTES AND ASSESSMENTS BY LAWRENCE NEAL.
== END 2022-08-26 13:34 | disposition home or self-care (01) ==
LOC: ER 11:47 → MEDS 11:48 → ENPENDDIS 08-26 12:04 → MEDS 08-26 13:34
PROVIDERS: Emergency Medicine; Family Medicine; ADMIT Hospitalist
DX: K85.90 Acute pancreatitis without necrosis or infection, unspecified (principal); I10 Essential (primary) hypertension; J43.9 Emphysema, unspecified; N39.0 Urinary tract infection, site not specified; F31.9 Bipolar disorder, unspecified; E03.9 Hypothyroidism, unspecified; M54.9 Dorsalgia, unspecified; G89.29 Other chronic pain; K58.9 Irritable bowel syndrome, unspecified; E66.9 Obesity, unspecified; G40.909 Epilepsy, unspecified, not intractable, without status epilepticus; K21.9 Gastro-esophageal reflux disease without esophagitis; Z88.8 Allergy status to other drugs, medicaments and biological substances; Z88.2 Allergy status to sulfonamides; Z88.0 Allergy status to penicillin; Z91.048 Other nonmedicinal substance allergy status; Z79.51 Long term (current) use of inhaled steroids; Z90.49 Acquired absence of other specified parts of digestive tract; Z98.84 Bariatric surgery status; Z87.891 Personal history of nicotine dependence; Z68.26 Body mass index [BMI] 26.0-26.9, adult
CPT/HCPCS: 36415; 80053; 81001; 83690; 83735; 84484; 85025; 85610; 87086; 93005; 93010; 94640; 94664; 94760; 96361; 96372; 96374; 96375; 99285-25; A9270; G0378; J0780; J1200; J1650; J7030; J7120

== ENCOUNTER 2022-11-19 12:17 | Inpatient (IN) | payer OTHER ==
[~2022-11-19] VITALS: Ht 170.2 cm; Wt 108.6 kg
[~2022-11-19 12:17] MED LIST changes: -ABILIFY MYCITE10 M2; -DECADRON4 M1 PO; -HYDROCODONE-AC1 EA19 PO; -MEDROXYPROGEST2.5 M2 PO
[2022-11-19 13:05] LABS: BASOPHILS ABSOLUTE AUTO 0.05 K/mm3 (0.00-0.23); BASOPHILS PERCENT AUTO 1 % (0-2); EOSINOPHILS ABSOLUTE AUTO 0.25 K/mm3 (0.00-0.68); EOSINOPHILS PERCENT AUTO 3 % (0-6); Hematocrit 37.4 % (33.0-51.0); Hemoglobin 12.7 g/dL (11.5-16.0); IMMATURE GRAN ABSOLUTE AUTO 0.03 K/mm3 (0.00-0.10); IMMATURE GRAN PERCENT AUTO 0 % (0-1); LYMPHOCYTES ABSOLUTE AUTO 1.91 K/mm3 (0.84-5.20); LYMPHOCYTES PERCENT AUTO 22 % (21-46); MONOCYTES ABSOLUTE AUTO 0.77 K/mm3 (0.16-1.47); MONOCYTES PERCENT AUTO 9 % (4-13); Mean Corpuscular HGB 31.1 pg (26.0-34.0); Mean Corpuscular Volume 92 fL (80-100); Mean Platelet Volume 8.3 fL (9.1-12.4); NEUTROPHILS ABSOLUTE AUTO 5.68 K/mm3 (1.96-9.15); NEUTROPHILS PERCENT AUTO 65 % (41-73); Platelet Count 365 K/mm3 (150-400); RDW Coefficient Variation 11.6 % (11.7-14.2); RDW Standard Deviation 39.3 fL (35.1-46.3); Red Blood Cell Count 4.08 M/mm3 (3.80-5.20); White Blood Cell Count 8.69 K/mm3 (4.00-11.30)
[2022-11-19 13:28] LABS: Albumin, Blood 3.2 g/dL (3.4-5.0); Albumin/Globulin Ratio 0.8 (0.8-1.8); Bilirubin, Total 0.3 mg/dL (0.1-1.0); Bun/Creatinine Ratio 19.5 (12.0-20.0); Calcium, Blood 8.5 mg/dL (8.5-10.1); Creatinine, Blood 0.51 mg/dL (0.40-1.00); Globulin, Blood 3.9 g/dL (2.2-4.0); Potassium, Blood 4.2 mmol/L (3.5-5.5); Total Protein, Blood 7.1 g/dL (6.4-8.2)
[2022-11-19] MEDS ORDERED: ABILIFY MYCITE10 M2 (18:18)
[2022-11-19] MEDS ORDERED: DECADRON4 M1 PO (18:27)
[2022-11-19] MEDS ORDERED: OMEP20ER PO (18:33)
[2022-11-19] MEDS ORDERED: MEDROXYPROGEST2.5 M2 PO (18:34)
[2022-11-19] MEDS ORDERED: HYDROCODONE-AC1 EA19 PO (18:36)
[2022-11-19 20:14] VITALS: BP 132/75
[2022-11-20] VITALS (21 sets, daily range): BP systolic 98–175; BP diastolic 66–118
--- NOTE | 2022-11-20 05:25 | NUR ---
PATIENT ALERT AND ORIENTED X4, COOPERATIVE WITH CARE, ANXIOUS AT TIMES, TANGENTIAL, WITH TANGENTIAL BUT CONCRETE COMMUNICATIONS. ASSOCIATE SCHOOL PSYCHOLOGIST REMAINED AT BEDSIDE FOR A FEW HOURS AT START OF SHIFT TO HELP CALM PATIENT. VSS, STAND BY ASSIST WITH PATIENTS OWN FWW. IV SL IN BETWEEN ABT'S. RLE KNEE PAIN TREATED PER JUN. NO OTHER ISSUES TO REPORT. NPO SINCE 2329 PER ORDER. NO OTHER ISSUES TO REPORT.
[2022-11-20 05:31] LABS: BASOPHILS ABSOLUTE AUTO 0.05 K/mm3 (0.00-0.23); BASOPHILS PERCENT AUTO 1 % (0-2); EOSINOPHILS PERCENT AUTO 5 % (0-6); Hematocrit 34.9 % (33.0-51.0); Hemoglobin 11.9 g/dL (11.5-16.0); IMMATURE GRAN ABSOLUTE AUTO 0.03 K/mm3 (0.00-0.10); IMMATURE GRAN PERCENT AUTO 1 % (0-1); LYMPHOCYTES PERCENT AUTO 30 % (21-46); MONOCYTES ABSOLUTE AUTO 0.64 K/mm3 (0.16-1.47); MONOCYTES PERCENT AUTO 10 % (4-13); Mean Corpuscular HGB 30.7 pg (26.0-34.0); Mean Corpuscular HGB Conc 34.1 g/dL (31.5-36.5); Mean Corpuscular Volume 90 fL (80-100); NEUTROPHILS ABSOLUTE AUTO 3.49 K/mm3 (1.96-9.15); NEUTROPHILS PERCENT AUTO 54 % (41-73); RDW Coefficient Variation 11.5 % (11.7-14.2); RDW Standard Deviation 38.1 fL (35.1-46.3); Red Blood Cell Count 3.87 M/mm3 (3.80-5.20); White Blood Cell Count 6.41 K/mm3 (4.00-11.30)
[2022-11-20 05:47] LABS: Mean Platelet Volume 8.7 fL (9.1-12.4); Platelet Count 353 K/mm3 (150-400)
[2022-11-20 06:01] LABS: Bun/Creatinine Ratio 18.6 (12.0-20.0); Calcium, Blood 8.3 mg/dL (8.5-10.1); Creatinine, Blood 0.43 mg/dL (0.40-1.00); Potassium, Blood 3.8 mmol/L (3.5-5.5)
--- NOTE | 2022-11-20 15:48 | NUR ---
11/20/22 1548 Jaime Mercado ANTIBIOTIC BEADS CONTAINING 6G GENTAMICIN AND 1G VANCOMYCIN PLACED IN OPERATIVE SITE.
--- NOTE | 2022-11-20 16:22 | NUR ---
PT WENT TO THE OR THIS AFTERNOON. WILL TRANSFER TO SURGICAL FLOOR POST PROCEDURE.
--- NOTE | 2022-11-20 18:29 | NUR ---
POST OP: REPORT RECEIVED FROM ASSISTANT GROCERY STORE MANAGER KIM. PT TO UNIT AT 1815. PT IS A/O, ANXIOUS. SURGICAL SITE WNL, PT ABLE TO WIGGLE TOES, PULSE IS +2. PT R KNEE POSITIONED FOR COMFORT. PT GIVEN CALL LIGHT AND TOLD TO CALL STAFF IF NEEDS TO VOID.
[2022-11-21 04:12] VITALS: BP 162/92
--- NOTE | 2022-11-21 04:26 | NUR ---
SHIFT SUMMARY POD1 I&D OF RIGHT KNEE. DRESSING REMAINS CLEAN, BUT PATIENT HAS BEEN LOOSENING AND REARRANGING DRESSING DESPITE EDUCATION T/O THE NIGHT ABOUT INFECTION AND BLEEDING RISK. AWAITING SURGEON TO DO FIRST DRESSING CHANGE. RLE HAS REMAINED ELVATED MUCH PT CAN TOLLERATE AND ICED ON AND OFF. VSS, HTN NOTED, PT REMAINS ASYMPTOMATIC. NOTED THAT PT HAS HAD INCREASED ANXIETY T/O THE NIGHT. PAIN HAS BEEN DIFFICULT TO MANAGE T/O THE NIGHT, PT STRUGGLING TO UTILIZE NONPHARM METHODS AND HAS BEEN REFUSING ALL NON NARCOTIC PAIN MEDICATION. PT HAS BEEN ABLE TO VOID USING THE BEDPAN, HAS BEEN TOO PAINFUL TO MOBILIZE OOB. TOLLERATING PO INTAKE W/O N/V. POWERGLIDE PLACED IN LUE. PLAN FOR PT TO WORK WITH PT/OT AND D/C WITH LUMBER STACKER OPERATOR ABX. NO IGNITION SOURCE NOTED
[2022-11-21 04:36] LABS: Calcium, Blood 8.9 mg/dL (8.5-10.1); Creatinine, Blood 0.47 mg/dL (0.40-1.00); Potassium, Blood 4.1 mmol/L (3.5-5.5); Vancomycin, Trough 9.5 ug/mL (5.0-10.0)
[2022-11-21 08:09] VITALS: BP 157/99
[2022-11-21 15:31] VITALS: BP 167/93
[2022-11-22 03:16] VITALS: BP 152/96
--- NOTE | 2022-11-22 05:42 | NUR ---
SHIFT SUMMARY POD 2 RIGHT KNEE I&D, SUTURES IN PLACE COVERED W/ GAUZE 4X4 AND TARIQ WRAP.VISIBLE REDNESS SURROUNDING INCISION. PT CONTINUES TO REPORT 8-9/10 PAIN AND REQUESTING IV DILAUDID Q2. EDUCATED PT ON USE OF PAIN MEDS AND RISK FOR CONSTIPATION AND DEPENDANCE, V/U BY PT. BP CONTINUES TO BE ELEVATED THIS SHIFT, NON SYMPTOMATIC. BP MEDS PER EMAR. POWER GLIDE TO LEFT UPPER ARM INTACT. PLANS FOR PIC LINE PLACEMENT TODAY AND POSSIBLE SNF PLACEMENT FOR ABX TX FOLLOWING DISCHARGE. PT AMBULATED TO BATHROOM W/ FWW AND SBA. NO ACUTE CHANGES THIS SHIFT, AWAITING VANCO TROUGH RESULTS. CALL LIGHT W/IN REACH.
[2022-11-22 07:41] VITALS: BP 146/90
[2022-11-22 14:42] VITALS: BP 157/90
--- NOTE | 2022-11-22 18:46 | NUR ---
SHIFT SUMMARY POD3 R KNEE I&D, A/OX4, VSS, TOLERATING PO, UP TO BSC/CHAIR WITH 1 ASSIST, HIGH LEVEL OF PAIN T/O THE SHIFT WHICH IS BEING TREATED WITH DILAUDED PER EMAR, PT REPORTS THIS TO BE THE BEST PAIN MANAGEMENT SHE HAS HAD SO FAR COMPARED TO OTHER MEDICATIONS. DRESSING CHANGED THIS SHIFT BY ORTHO. NO ACUTE EVENTS THIS SHIFT, CALL LIGHT IN REACH.
[2022-11-22 20:40] VITALS: BP 128/99
[2022-11-23 03:10] VITALS: BP 117/69
[2022-11-23 08:02] LABS: BASOPHILS ABSOLUTE AUTO 0.05 K/mm3 (0.00-0.23); BASOPHILS PERCENT AUTO 1 % (0-2); EOSINOPHILS ABSOLUTE AUTO 0.74 K/mm3 (0.00-0.68); EOSINOPHILS PERCENT AUTO 8 % (0-6); Hematocrit 37.5 % (33.0-51.0); IMMATURE GRAN ABSOLUTE AUTO 0.04 K/mm3 (0.00-0.10); IMMATURE GRAN PERCENT AUTO 0 % (0-1); LYMPHOCYTES PERCENT AUTO 25 % (21-46); MONOCYTES ABSOLUTE AUTO 0.91 K/mm3 (0.16-1.47); MONOCYTES PERCENT AUTO 9 % (4-13); Mean Corpuscular HGB 31.2 pg (26.0-34.0); Mean Corpuscular HGB Conc 34.7 g/dL (31.5-36.5); Mean Corpuscular Volume 90 fL (80-100); Mean Platelet Volume 8.2 fL (9.1-12.4); NEUTROPHILS PERCENT AUTO 58 % (41-73); Platelet Count 425 K/mm3 (150-400); RDW Coefficient Variation 11.7 % (11.7-14.2); RDW Standard Deviation 37.7 fL (35.1-46.3); Red Blood Cell Count 4.17 M/mm3 (3.80-5.20); White Blood Cell Count 9.74 K/mm3 (4.00-11.30)
[2022-11-23 08:18] LABS: Bun/Creatinine Ratio 15.4 (12.0-20.0); Calcium, Blood 8.8 mg/dL (8.5-10.1); Creatinine, Blood 0.45 mg/dL (0.40-1.00); Potassium, Blood 4.4 mmol/L (3.5-5.5)
[2022-11-23 08:41] VITALS: BP 130/72
--- NOTE | 2022-11-23 09:07 | NUR ---
SUMMARY PT REQUESTING DILAUDID IV 1 MG APPROX Q2 HR TONIGHT.REPORTS EFFECTIVE,DOZING INTERMITTENTLY.THIS AM,PT APPEARED TO BE DOZING AND JOLTED AWAKE. STATED SHE HAD A SEIZURE.PT ON TEGRETOL,AND STATES SHE HAD A "ON SECOND LAPSE IN WATCHING TV" AND REPORTS THE JOLTING FOR ANOTHER SECOND HER "AFTER SEIZURE" ACTIVITY. REPORTS HER LAST SEIZURE WAS 2 MONTHS AGO AND STATED " THEY HAVE NEVER BEEN ABLE TO ACTUALLY CATCH MY SEIZURES ON EEG". DAY RN AWARE AND PT REPORTS HAS NOT HAD TEGRETOL LEVEL FOR " A LONG TIME"
[2022-11-23 15:32] VITALS: BP 130/82
[2022-11-23 19:50] VITALS: BP 145/83
--- NOTE | 2022-11-23 20:26 | NUR ---
PT VS HAVE BEEN STABLE POST OP. PT WAS SLEEPY THROUGHOUT RECOVERY. ATTENDS PLACED FOR INCONTINENCE. IV CONT FROM OR PT HAS NOT BEEN DRINKING YET. DRESSINGS CDI. IMMOBILIZER IN PLACE. PULSES NORMAL. PAS TO LEFT LEG. BED ALARM ON FOR SAFETY. FAMILY UPDATED ON PT PROGRESS. PT IN EVENING STARTED TO FIDGET MORE AND BECOME MORE ALERT. BED RAILS UP X3. IV SECURED.
--- NOTE | 2022-11-23 20:32 | NUR ---
PT HAS BEEN STABLE THIS SHIFT. PT REPORTS HIGH PAIN AND REQUIRES Q2HR DILAUDID. PT STARTED ON BENADRYL FOR ITCHING. PT OOB WITH MIN ASSIST AND WALKER. SAT IN CHAIR MOST OF DAY. BEDBATH GIVEN. DRESSING CHANGED PRN FOR DISPLACEMENT. PT AWAITING PICC LINE FOR [facility] ABX. PLAN FOR REHAB ON FRIDAY. PAS TO BLE. AM LABS ORDERED. URINE OSMOLALITY SENT BY THIS RN.
[2022-11-23 21:40] VITALS: BP 118/71
[2022-11-24 02:48] VITALS: BP 114/81
[2022-11-24 04:26] LABS: Bun/Creatinine Ratio 15.2 (12.0-20.0); Calcium, Blood 8.1 mg/dL (8.5-10.1); Creatinine, Blood 0.53 mg/dL (0.40-1.00); Potassium, Blood 3.5 mmol/L (3.5-5.5)
[2022-11-24 07:16] VITALS: BP 123/66
--- NOTE | 2022-11-24 09:57 | NUR ---
0705-[facility] BEDSIDE REPORT FROM PREVIOUS SHIFT RN ELIAS, PT AWAKE, A/X4, PLEASANT/COOPERATIVE. PT REPORTS PAIN /. SITTING UP IN BED WATCHING TV, BED RAILS UP X 2, BED IN LOWEST POSITION 0800-AMBULATED PT TO BATHROOM THEN UP TO CHAIR
--- NOTE | 2022-11-24 14:17 | NUR ---
SELENA RN INSERTING PICC LINE
[2022-11-24 16:29] VITALS: BP 125/75
--- NOTE | 2022-11-24 16:44 | NUR ---
SHIFT SUMMARY: PT REMAINED A/0 X 5, PLEASANT/COOPERATIVE. PT TOLERATED PO INTAKE, NO N/V. PT MEDICATED PER MAR WITH REPORTS OF PAIN PRIOR TO ADMINISTRATION OF PAIN MEDICATION 12/29 CONTINUALLY, ON ASSESSMENT REPORTS OF 7/10 EACH TIME. PT UP TO BATHROOM WITH STANDBY ASSIST, WALKER, GAIT BELT, TOLERATED WELL. PT UP TO CHAIR FOR BREAKFAST. PICC LINE PLACED RUE BY SELENA RN, PT TOLERATED WELL. DRESSING CHANGE APPROX 1350 SHOWS INCISION SHOWS INTACT STITCHES, MILD TO MODERATE INFLAMMATION/SWELLING IMMEDIATE TO STITCHES, NO EXUDATE, SKIN TEMPERATURE BASELINE. PT STATES THE INCISION LOOKS "BETTER THAN BEFORE."
[2022-11-24 19:30] VITALS: BP 124/77
[2022-11-25 03:02] VITALS: BP 133/79
[2022-11-25 07:37] VITALS: BP 121/76
--- NOTE | 2022-11-25 07:39 | NUR ---
SUMMARY PT WITH NO ACUTE CHANGES TONIGHT.
[2022-11-25 14:10] VITALS: BP 134/81
--- NOTE | 2022-11-25 17:45 | NUR ---
SHIFT SUMMARY PT ALERT AND ORIENTED X 4.VSS. HR STABLE. BP STABLE. NO CP OR PRESSURE REPORTED. PT REPORTS PAIN IN R KNEE, MEDICATED PER EMAR AND ICE APPLIED. PHYSICAL THERAPY WORKED WITH PT DURING SHIFT, PT ABLE TO WALK AROUND UNIT WITH FRONT WHEEL WALKER,ONE ASSIST. PT TOLERATED WELL. DRESSING CHANGED ON R KNEE, SITE REMAINS C/D/I. PT UP IN CHAIR T/O SHIFT. CALL LIGHT WITHIN REACH. WILL CONT TO MONITOR UNTIL REPORT GIVEN TO NIGHTSHIFT RN.
[2022-11-25 20:02] VITALS: BP 121/70
[2022-11-26 04:35] VITALS: BP 123/81
--- NOTE | 2022-11-26 04:51 | NUR ---
SHIFT SUMMARY POD7 I&D OF RIGHT KNEE. DRESSING REMAINS C/D/I. SENSATION AND CIRCULATION REMAIN INTACT IN RLE. VSS PT NOTED TO BE OVER HER FLUID RESTRICTION THIS SHIFT, EDUCATED AND MAINTAINED MINIMAL PO FLUID INTAKE T/O THE NIGHT. LARGE URINE OUTPUT NOTED. PT AMBULATING WELL WITH SBA/1P. TOLLERATING PO INTAKE W/O N/V. VOIDING AND PASSING STOOL W/O DIFFICULTY. MEDICATED FOR PAIN WITH PO DILAUDUD WITH TOLLERABLE RESULTS. NO ACUTE EVENTS T/O THE NIGHT. PLAN FOR PT TO D/C TO SNF WHEN INSURANCE APPROVED. NO IGNITION SOURCE NOTED.
[2022-11-26 07:22] VITALS: BP 123/81
[2022-11-26 09:21] LABS: SARS-Cov-2 (COVID-19) PCR, MMC NEGATIVE (NEGATIVE)
--- NOTE | 2022-11-26 12:05 | NUR ---
REPORT CALLED TO [facility] AT THIS TIME. ALL QUESTIONS ANSWERED. CURRENTLY AWAITING TRANSPORT.
--- NOTE | 2022-11-26 13:15 | NUR ---
PT LEFT VIA TRANSPORT. ALL BELONGINGS WITH PATIENT, SCRIPT IN FOLDER SENT WITH TRANSPORT. PICC DRESSING CHANGED PRIOR TO DISCHARGE, STERILE TECHNIQUE MAINTAINED. DRESSING TO RLE CDI. PAIN MANAGED PER EMAR.
== END 2022-11-26 13:18 | DRG 486 ==
LOC: ER 12:17 → MEDS 16:29 → SURS 16:29 → MEDS 18:09 → SURS 11-20 16:59
PROVIDERS: Internal Medicine; Orthopaedic Surgery; Physician Assistant; ADMIT Family Medicine
PROC: 0SPC09Z Removal of Liner from Right Knee Joint, Open Approach (ICD-10-PCS; 2022-11-20)
PROC: 0SUV09Z Supplement Right Knee Joint, Tibial Surface with Liner, Open Approach (ICD-10-PCS; 2022-11-20)
PROC: 3E0U329 Introduction of Other Anti-infective into Joints, Percutaneous Approach (ICD-10-PCS; 2022-11-20)
PROC: 0LBQ0ZZ Excision of Right Knee Tendon, Open Approach (ICD-10-PCS; principal; 2022-11-20 15:00)
PROC: 02HV33Z Insertion of Infusion Device into Superior Vena Cava, Percutaneous Approach (ICD-10-PCS; 2022-11-25)
DX: T84.53XA Infection and inflammatory reaction due to internal right knee prosthesis, initial encounter (principal); E22.2 Syndrome of inappropriate secretion of antidiuretic hormone; M00.9 Pyogenic arthritis, unspecified; R79.82 Elevated C-reactive protein (CRP); I10 Essential (primary) hypertension; E03.9 Hypothyroidism, unspecified; M54.9 Dorsalgia, unspecified; G89.29 Other chronic pain; K21.9 Gastro-esophageal reflux disease without esophagitis; F31.9 Bipolar disorder, unspecified; J44.9 Chronic obstructive pulmonary disease, unspecified; B00.1 Herpesviral vesicular dermatitis; K58.9 Irritable bowel syndrome, unspecified; Z20.822 Contact with and (suspected) exposure to COVID-19; M79.7 Fibromyalgia; F10.21 Alcohol dependence, in remission; G40.909 Epilepsy, unspecified, not intractable, without status epilepticus; Z79.899 Other long term (current) drug therapy; Z88.8 Allergy status to other drugs, medicaments and biological substances; Z98.890 Other specified postprocedural states; Z90.89 Acquired absence of other organs; Z79.890 Hormone replacement therapy; Z90.721 Acquired absence of ovaries, unilateral; Z98.1 Arthrodesis status; Z98.41 Cataract extraction status, right eye; Z88.1 Allergy status to other antibiotic agents; Z88.0 Allergy status to penicillin; Z88.2 Allergy status to sulfonamides; Z87.891 Personal history of nicotine dependence; Z90.49 Acquired absence of other specified parts of digestive tract; Z98.84 Bariatric surgery status; Z87.19 Personal history of other diseases of the digestive system; Z86.69 Personal history of other diseases of the nervous system and sense organs; Z96.653 Presence of artificial knee joint, bilateral; Z68.30 Body mass index [BMI] 30.0-30.9, adult; Z79.2 Long term (current) use of antibiotics
CPT/HCPCS: 36415; 80048; 80053; 80202; 83930; 83935; 85025; 86140; 87071; 87075; 87205; 89051; 89060; 94640; 94664; 94760; 96374; 97116; 97162; 97166; 97530; 97535; 99284-25; A9270; C1713; J1100; J1170; J1580; J2060; J2185; J2405; J2704; J3010; J3370; J7050; J7120; U0002

== ENCOUNTER → 2022-11-19 | Outpatient (CLI) | payer OTHER ==
[~2022-11-19] MED LIST changes: +ABILIFY MYCITE10 M2; +ABILIFY MYCITE30 M2 PO; +ALORA1 EA11 TD; +ALUMINUM HYDROXIDE PO; +Acetaminophen650 M1 PO; +BARRIER CREAM TOP; +BENADRYL25 MG PO; +BISA10S PR; +BUPRENORPHINE HC8 MG SL; +CYCL0.05OP BOTHEYES; +DECADRON4 M1 PO; +DULCOLAX400 MG/5 M PO; +GABA300 PO; +GLYDO11 ML TOP; +HYDROCODONE-AC1 EA19 PO; +HYDROCORTISONE30 GM TOP; +IPRAT-ALBUT 0.5-3 ML INH; +LOPERAMIDE1 MG/7.10 PO; +MAGNESIUM HYDROXIDE PO; +MEDROXYPROGEST2.5 M2 PO; +ONDA4 PO; +SPIRIVA RESPIMAT4 G3 INH; +SYMBICORT 16010.2 GM INH; +TRIDERM28.4 GM TOP; +VITAMIN D5000 UNIT PO; +Ventolin/Prove6.7 GM INH; +[UNRECOGNIZED DRUG - CODE] TOP
[2022-11-19 11:34] LABS: BODY FLUID RBC 0.004 M/mm3 (0-0)
[2022-11-19 12:31] LABS: Body Fluid Crystals NEG (NEGATIVE)
[2022-11-19 13:43] LABS: RBC Count, Synovial Fluid 4000 /mm3 (0-0)
[2022-11-19 13:44] LABS: WBC Count, Synovial Fluid 42340 /mm3 (0-180)
[2022-11-19 13:50] LABS: Lymphs, Synovial Fluid 3 % (0-15); Monocytes/Macrophages, Synovia 8 % (0-65); Neutrophils, Synovial Fluid 89 % (0-24)
[2022-11-19 13:51] LABS: Appearance, Synovial Fluid Hazy (Clear); Color, Synovial Fluid Yellow (None-P Yel)
== END | disposition home or self-care (01) ==
LOC: LAB SHORT 10:30 → LAB 10:30
PROVIDERS: Orthopaedic Surgery
DX: M25.561 Pain in right knee (principal)
CPT/HCPCS: 87070; 87075; 87205; 89051; 89060

== ENCOUNTER 2022-12-29 10:49 | Emergency (ER) | payer OTHER ==
[~2022-12-29] VITALS: Ht 170.2 cm; Wt 112.0 kg
[~2022-12-29 10:49] MED LIST changes: +ABILIFY MYCITE10 M2; +DECADRON4 M1 PO; +HYDROCODONE-AC1 EA19 PO; +MEDROXYPROGEST2.5 M2 PO
[2022-12-29 11:49] VITALS: BP 130/98
[2022-12-29 12:15] LABS: BASOPHILS ABSOLUTE AUTO 0.04 K/mm3 (0.00-0.23); BASOPHILS PERCENT AUTO 0 % (0-2); EOSINOPHILS ABSOLUTE AUTO 0.38 K/mm3 (0.00-0.68); EOSINOPHILS PERCENT AUTO 4 % (0-6); Hematocrit 39.4 % (33.0-51.0); Hemoglobin 13.5 g/dL (11.5-16.0); IMMATURE GRAN ABSOLUTE AUTO 0.03 K/mm3 (0.00-0.10); IMMATURE GRAN PERCENT AUTO 0 % (0-1); LYMPHOCYTES ABSOLUTE AUTO 2.17 K/mm3 (0.84-5.20); LYMPHOCYTES PERCENT AUTO 23 % (21-46); MONOCYTES ABSOLUTE AUTO 0.55 K/mm3 (0.16-1.47); MONOCYTES PERCENT AUTO 6 % (4-13); Mean Corpuscular HGB 29.7 pg (26.0-34.0); Mean Corpuscular HGB Conc 34.3 g/dL (31.5-36.5); Mean Corpuscular Volume 87 fL (80-100); Mean Platelet Volume 8.4 fL (9.1-12.4); NEUTROPHILS ABSOLUTE AUTO 6.14 K/mm3 (1.96-9.15); NEUTROPHILS PERCENT AUTO 66 % (41-73); Platelet Count 442 K/mm3 (150-400); RDW Coefficient Variation 11.7 % (11.7-14.2); RDW Standard Deviation 37.7 fL (35.1-46.3); Red Blood Cell Count 4.54 M/mm3 (3.80-5.20); White Blood Cell Count 9.31 K/mm3 (4.00-11.30)
[2022-12-29 12:33] LABS: Albumin, Blood 3.7 g/dL (3.4-5.0); Bilirubin, Total 0.2 mg/dL (0.1-1.0); Bun/Creatinine Ratio 29.8 (12.0-20.0); Calcium, Blood 8.8 mg/dL (8.5-10.1); Creatinine, Blood 0.61 mg/dL (0.40-1.00); Globulin, Blood 3.8 g/dL (2.2-4.0); Total Protein, Blood 7.5 g/dL (6.4-8.2)
[2022-12-29 13:59] LABS: Source, Urine Clean Catch
[2022-12-29 14:10] LABS: Appearance, Urine Clear (Clear); Bilirubin, Urine Neg (Neg); Blood, Urine Neg (Neg); Color, Urine Yellow (P-Yellow); Glucose Qualitative, Urine Neg (Neg); Ketones, Urine Neg (Neg); Leukocyte Esterase, Urine Neg (Neg); Nitrite, Urine Neg (Neg); Protein, Urine Neg (Neg); Urobilinogen, Urine NORM (Normal)
== END 2022-12-29 16:08 | disposition home or self-care (01) ==
LOC: ER 10:49
PROVIDERS: Student in an Organized Health Care Education/Training Program
DX: R10.31 Right lower quadrant pain (principal); G89.18 Other acute postprocedural pain; M25.561 Pain in right knee; Z88.1 Allergy status to other antibiotic agents; Z88.0 Allergy status to penicillin; Z88.2 Allergy status to sulfonamides; Z88.8 Allergy status to other drugs, medicaments and biological substances; Z88.4 Allergy status to anesthetic agent; Z91.048 Other nonmedicinal substance allergy status; Z79.51 Long term (current) use of inhaled steroids; Z87.891 Personal history of nicotine dependence
CPT/HCPCS: 74019; 80053; 81003; 85025; 96374; 99284-25; J1885

== ENCOUNTER → 2023-05-06 | Outpatient (CLI) | payer OTHER | END | disposition home or self-care (01) | LOC: LAB 16:08 → LAB SHORT 16:08 | DX: N39.0 Urinary tract infection, site not specified (principal) | CPT/HCPCS: 87077; 87086; 87186 ==

== ENCOUNTER 2024-04-13 18:42 | Emergency (ER) | payer OTHER ==
[~2024-04-13] VITALS: Ht 170.2 cm; Wt 122.5 kg
[2024-04-13 23:13] LABS: BASOPHILS ABSOLUTE AUTO 0.05 K/mm3 (0.00-0.23); BASOPHILS PERCENT AUTO 1 % (0-2); EOSINOPHILS ABSOLUTE AUTO 0.25 K/mm3 (0.00-0.68); EOSINOPHILS PERCENT AUTO 3 % (0-6); Hematocrit 38.4 % (33.0-51.0); Hemoglobin 12.7 g/dL (11.5-16.0); IMMATURE GRAN ABSOLUTE AUTO 0.04 K/mm3 (0.00-0.10); IMMATURE GRAN PERCENT AUTO 0 % (0-1); LYMPHOCYTES ABSOLUTE AUTO 2.37 K/mm3 (0.84-5.20); LYMPHOCYTES PERCENT AUTO 24 % (21-46); MONOCYTES PERCENT AUTO 11 % (4-13); Mean Corpuscular HGB 29.5 pg (26.0-34.0); Mean Corpuscular HGB Conc 33.1 g/dL (31.5-36.5); Mean Corpuscular Volume 89 fL (80-100); Mean Platelet Volume 8.8 fL (9.1-12.4); NEUTROPHILS ABSOLUTE AUTO 6.24 K/mm3 (1.96-9.15); NEUTROPHILS PERCENT AUTO 62 % (41-73); Platelet Count 325 K/mm3 (150-400); RDW Coefficient Variation 13.2 % (11.7-14.2); RDW Standard Deviation 42.8 fL (35.1-46.3); White Blood Cell Count 10.05 K/mm3 (4.00-11.30)
[2024-04-13 23:50] LABS: Albumin, Blood 3.4 g/dL (3.4-5.0); Albumin/Globulin Ratio 0.9 (0.8-1.8); Bilirubin, Total 0.4 mg/dL (0.1-1.0); Bun/Creatinine Ratio 15.1 (12.0-20.0); Calcium, Blood 9.1 mg/dL (8.5-10.1); Creatinine, Blood 1.26 mg/dL (0.40-1.00); Globulin, Blood 3.8 g/dL (2.2-4.0); Potassium, Blood 3.6 mmol/L (3.5-5.5); Total Protein, Blood 7.2 g/dL (6.4-8.2)
[2024-04-14] MEDS ORDERED: NS 1,000 ML IV SCH (00:10)
[2024-04-14 01:00] VITALS: BP 146/85
[2024-04-14] MEDS ORDERED: RX Prepack 2 Tabs Ondansetron ODT 4MG UD ONE (02:15)
[2024-04-14] MEDS ORDERED: Polyethylene Glycol 3350 17 gm PO ONE (02:20)
[2024-04-14] MEDS ORDERED: Glycerin Adult Supp 1 EA PR ONE (02:20)
[2024-04-14] MEDS ORDERED: ADULT GLYCERIN1 EACH PR (02:22)
[2024-04-14] MEDS ORDERED: MIRALAX17 GM PO (02:22)
[2024-04-14] MEDS ORDERED: ONDA4ODT MM (02:22)
== END 2024-04-14 03:20 | disposition home or self-care (01) ==
LOC: ER 18:42
PROVIDERS: Student in an Organized Health Care Education/Training Program
DX: K85.90 Acute pancreatitis without necrosis or infection, unspecified (principal); K59.00 Constipation, unspecified; J44.9 Chronic obstructive pulmonary disease, unspecified; K21.9 Gastro-esophageal reflux disease without esophagitis; Z79.51 Long term (current) use of inhaled steroids; Z79.899 Other long term (current) drug therapy; Z88.0 Allergy status to penicillin; Z88.2 Allergy status to sulfonamides; Z91.041 Radiographic dye allergy status; Z88.5 Allergy status to narcotic agent; Z88.1 Allergy status to other antibiotic agents; Z88.8 Allergy status to other drugs, medicaments and biological substances
CPT/HCPCS: 74176; 80053; 83690; 85025; 96360; 96361; 99284-25; A9270; J7030

== ENCOUNTER 2024-05-05 06:16 | Day surgery (SDC) | payer OTHER ==
[2024-05-05] VITALS (14 sets, daily range): BP systolic 127–144; BP diastolic 67–97
[~2024-05-05] VITALS: Ht 170.2 cm; Wt 124.3 kg
[~2024-05-05 06:16] MED LIST changes: -ABILIFY MYCITE10 M2; +ABILIFY MYCITE10 M2 PO; +ADULT GLYCERIN1 EACH PR; +ALEVAZOL56.7 G1 TOP; +AMLO10 PO; +FAMC250 PO; +HYDROCODONE-AC1 EAC7 PO; -LISI20 PO; +MIRALAX17 GM PO; +MULVITA PO; +ONDA4ODT MM; +PRED AC-MOXI-NEP5 M1; +Prinivil10 MG PO; +VENL150ER PO; +ZINC OXIDE57 GM TOP
[2024-05-05] MEDS ORDERED: Lactated Ringer's 1,000 ML IV SCH (06:30)
--- NOTE | 2024-05-05 07:02 | NUR ---
History, Chart, Medications and Allergies reviewed before start of procedure. Pre-Op teaching done. Pt verbalizes understanding. Patient confirms NPO status and agrees with scheduled surgery. PT BELONGINGS BAG PLACED UNDER GURNEY.
[2024-05-05] MEDS ORDERED: Tranexamic Acid 1,000 MG in NS 100 ML IV SCH (07:15)
[2024-05-05] MEDS ORDERED: Bupivacaine HCl 2.5 MG/ML 10ML P/F Injection ONE (07:15)
[2024-05-05] MEDS ORDERED: Dexmedetomidine HCL 200 MCG / 2 ML ONE (07:15)
[2024-05-05] MEDS ORDERED: Clindamycin 900mg in D5W 50ML 50 ML IV SCH (07:15)
[2024-05-05] MEDS ORDERED: Midazolam HCl 1MG / ML 2ML Vial ONE (07:17)
[2024-05-05] MEDS ORDERED: CeFAZolin Sodium 3,000 MG in NS 100 ML IV SCH (07:20)
[2024-05-05] MEDS ORDERED: EpiNEPhrine 1 MG/1 ML 1ML Vial ONE (07:23)
--- NOTE | 2024-05-05 07:23 | NUR ---
ANES AT BS TO COMPLETE NERVE BLOCK. PT PLACED ON 2L NC. 2MG IV VERSED GIVEN AT 728. PROCEDURE START AT 729. PT TOLERATED PROCEDURE WELL. VSS. PROCEDURE END AT 734.
[2024-05-05] MEDS ORDERED: CeFAZolin Sodium 3,000 MG VIAL ONE (07:35)
[2024-05-05] MEDS ORDERED: Rocuronium Bromide 10 MG/ML 5ML Injection IV ONE (07:42)
[2024-05-05] MEDS ORDERED: propofoL 20 ML IV ONE (07:42)
[2024-05-05] MEDS ORDERED: HYDROmorphone HCl/Pf 1MG SYR IV PRN ×2 (08:35)
[2024-05-05] MEDS ORDERED: FentaNYL Citrate 50 MCG/ML 2 ML Injection IV PRN ×2 (08:40)
[2024-05-05] MEDS ORDERED: Labetalol HCL 5 MG/ML 4ML Injection (Single Dose) IV PRN (08:40)
[2024-05-05] MEDS ORDERED: Ondansetron HCl 2 MG / ML 2ML Vial IV PRN (08:40)
[2024-05-05] MEDS ORDERED: Atropine Sulfate 0.1 MG/ML 10ML SYR IV PRN (08:40)
[2024-05-05] MEDS ORDERED: HydrALAZINE HCl 20 MG / ML 1ML Vial IV PRN (08:40)
[2024-05-05] MEDS ORDERED: LORazepam 2 MG/ML 1ML Injection IV PRN (08:40)
[2024-05-05] MEDS ORDERED: Albuterol 2.5 MG/3 ML VIAL INH PRN (08:45)
[2024-05-05] MEDS ORDERED: Sugammadex Sodium 200 MG/2ML SDV (100 MG/ML) ONE ×2 (09:31→09:33)
[2024-05-05] MEDS ORDERED: Dexamethasone Sod Phos 10 MG/ML 1ML VIAL ONE (09:31)
[2024-05-05] MEDS ORDERED: Ondansetron HCl 2 MG / ML 2ML Vial ONE (09:31)
[2024-05-05] MEDS ORDERED: OxyCODONE HCL 5 MG TAB PO PRN (10:55)
--- NOTE | 2024-05-05 12:44 | NUR ---
DISCHARGE NOTE PT A&OX4, BREATHING RA, LUNGS CLEAR BILATERALLY, VSS. PT BEGINNING TO HAVE FEELING IN OPERATIVE ARM, ABLE TO MOVE FINGERS. FINGERS TO OPERATIVE ARM ARE PWD C BRISK CAP REFILL. Dressing to procedure site clean, dry, intact with no visible drainage, swelling, erythema or bruising noted.POLAR PACK IN PLACE. Discharge instructions reviewed with patient. Patient verbalizes understanding. Copy given to patient to take home.PT DRESSED WITH ASSISTANCE, IMMOBILIZER SLING PLACED. PT AWAITING [facility] RIDE- PT STABLE.
== END 2024-05-05 12:30 | disposition home or self-care (01) ==
LOC: ORSCMMR 06:16 → ORD 07:30 → ORSCMMR 07:30
PROVIDERS: Orthopaedic Surgery Sports Medicine
PROC: 0RNJ4ZZ Release Right Shoulder Joint, Percutaneous Endoscopic Approach (ICD-10-PCS; principal; 2024-05-05 07:30)
PROC: 0LM14ZZ Reattachment of Right Shoulder Tendon, Percutaneous Endoscopic Approach (ICD-10-PCS; principal; 2024-05-05 07:30)
DX: M75.121 Complete rotator cuff tear or rupture of right shoulder, not specified as traumatic (principal); M25.511 Pain in right shoulder; I10 Essential (primary) hypertension; J45.909 Unspecified asthma, uncomplicated; K21.9 Gastro-esophageal reflux disease without esophagitis; F31.9 Bipolar disorder, unspecified; Z79.899 Other long term (current) drug therapy; E66.01 Morbid (severe) obesity due to excess calories; Z68.41 Body mass index [BMI] 40.0-44.9, adult
CPT/HCPCS: A9270; C1713; J0171; J0690; J1100; J2250; J2405; J2704; J7120